=== PATIENT | male | born 1940 | race Caucasian/White ===

== ENCOUNTER → 2016-09-07 | Outpatient (REF) | payer MEDICARE ==
[~2016-09-07] MED LIST: BIMA01SOL OU; CALC600T10 PO; CIPR500T89 PO; FISH1000 PO; FLAG500T PO; FLOM5CAP PO; PROT1TAB2 PO; RAMI10CA PO; RANI300T PO; SIMV40TA2 PO; SUCR1TA PO; TIMO5OPG OU; VITA10002 PO; VITA100066 PO; VITMTA PO
[2016-09-07 11:57] LABS: BASO % 0.7 % (0.0-1.0); EOS # 0.2 K/mm3 (0.0-0.50); EOS % 3.9 % (0.0-3.0); LARGE UNSTAINED CELL # 0.1 K/mm3 (0.0-0.4); LARGE UNSTAINED CELL % 2.1 % (0.0-4.0); LYMPH # 1.6 K/mm3 (1.5-4.5); LYMPH % 22.9 % (24.0-44.0); MEAN CORPUSCULAR HEMOGLOBIN 28.4 pg (27.0-33.0); MEAN CORPUSCULAR HGB CONC 32.9 g/dl (32.0-36.5); MEAN CORPUSCULAR VOLUME 86.4 fl (80.0-96.0); MONO # 0.5 K/mm3 (0.0-0.8); MONO % 7.3 % (0.0-5.0); NEUTROPHILS % 63.3 % (36.0-66.0); PLATELET COUNT, AUTOMATED 176 k/mm3 (150-450); RED CELL DISTRIBUTION WIDTH 14.9 % (11.5-14.5); WHITE BLOOD COUNT 6.2 K/mm3 (4.0-10.0)
[2016-09-07 12:06] LABS: ALBUMIN 3.9 GM/DL (3.2-5.2); ALKALINE PHOSPHATASE 128 U/L (45-117); ALT/SGPT 30 U/L (12-78); ANION GAP 8 MEQ/L (8-16); AST/SGOT 17 U/L (15-37); BILIRUBIN,TOTAL 0.4 MG/DL (0.2-1.0); BLOOD UREA NITROGEN 20 MG/DL (7-18); CALCIUM LEVEL 8.6 MG/DL (8.8-10.2); CARBON DIOXIDE LEVEL 26 MEQ/L (21-32); CHLORIDE LEVEL 106 MEQ/L (98-107); CHOLESTEROL LEVEL 189 MG/DL (<200); CREATININE FOR GFR 1.07 MG/DL (0.70-1.30); FERRITIN 11 NG/ML (26-388); FREE T4 1.01 NG/DL (0.76-1.46); GLOMERULAR FILTRATION RATE > 60.0 (>42); GLUCOSE, FASTING 96 MG/DL (83-110); PERCENT SATURATION 26.9 % (19.7-37.4); POTASSIUM SERUM 4.5 MEQ/L (3.5-5.1); SODIUM LEVEL 140 MEQ/L (136-145); TOTAL IRON BINDING CAPACITY 401 UG/DL (250-450); TOTAL PROTEIN 6.9 GM/DL (6.4-8.2); TRIGLYCERIDES LEVEL 239 MG/DL (<150)
[2016-09-08 14:20] LABS: PSA TOTAL 3.4 ng/mL (0.0-4.0)
== END ==
LOC: M SFHCPLAZ 09:06
PROVIDERS: ATTEND Family Medicine
DX: R73.01 Impaired fasting glucose (principal); E78.5 Hyperlipidemia, unspecified; N40.1 Benign prostatic hyperplasia with lower urinary tract symptoms; E66.9 Obesity, unspecified

== ENCOUNTER → 2017-02-04 | Outpatient (REF) | payer MEDICARE ==
[~2017-02-04] MED LIST changes: -CALC600T10 PO; +CALC600T31 PO; +CIPR-249 PO; -CIPR500T89 PO
[2017-02-04 16:52] LABS: PERCENT SATURATION 16.2 % (19.7-50.0)
[2017-02-04 17:04] LABS: BASO % 0.4 % (0.0-1.0); EOS # 0.2 K/mm3 (0.0-0.50); EOS % 3.1 % (0.0-3.0); LARGE UNSTAINED CELL # 0.2 K/mm3 (0.0-0.4); LARGE UNSTAINED CELL % 2.2 % (0.0-4.0); LYMPH # 1.5 K/mm3 (1.5-4.5); MEAN CORPUSCULAR HEMOGLOBIN 31.3 pg (27.0-33.0); MEAN CORPUSCULAR HGB CONC 34.5 g/dl (32.0-36.5); MEAN CORPUSCULAR VOLUME 90.8 fl (80.0-96.0); MONO # 0.5 K/mm3 (0.0-0.8); MONO % 6.7 % (0.0-5.0); NEUTROPHILS # 5.3 K/mm3 (1.8-7.7); NEUTROPHILS % 68.6 % (36.0-66.0); PLATELET COUNT, AUTOMATED 278 k/mm3 (150-450); RED CELL DISTRIBUTION WIDTH 12.9 % (11.5-14.5); WHITE BLOOD COUNT 7.8 K/mm3 (4.0-10.0)
== END ==
LOC: M SFHCPLAZ 12:29
PROVIDERS: ATTEND Family Medicine
DX: D50.9 Iron deficiency anemia, unspecified (principal); E78.5 Hyperlipidemia, unspecified; R73.01 Impaired fasting glucose

== ENCOUNTER → 2017-06-10 | Outpatient (REF) | payer MEDICARE ==
[2017-06-10 13:17] LABS: BASO # 0.1 10^3/uL (0.0-0.2); BASO % 0.5 % (0.0-1.0); EOS # 0.2 10^3/uL (0.0-0.50); EOS % 1.3 % (0.0-3.0); HEMATOCRIT 43.4 % (42.0-52.0); HEMOGLOBIN 14.4 g/dl (14.0-18.0); IMMATURE GRANULOCYTE # 0.1 10^3/uL (0-0); IMMATURE GRANULOCYTE % 0.9 % (0-0); LYMPH # 1.3 10^3/uL (1.5-4.5); LYMPH % 10.4 % (24.0-44.0); MEAN CORPUSCULAR HEMOGLOBIN 30.4 pg (27.0-33.0); MEAN CORPUSCULAR HGB CONC 33.2 g/dl (32.0-36.5); MEAN CORPUSCULAR VOLUME 91.6 fl (80.0-96.0); MONO # 0.8 10^3/uL (0.0-0.8); MONO % 6.4 % (0.0-5.0); NEUTROPHILS # 9.9 10^3/uL (1.8-7.7); NEUTROPHILS % 80.5 % (36.0-66.0); PLATELET COUNT, AUTOMATED 331 10^3/uL (150-450); RED BLOOD COUNT 4.74 10^6/uL (4.30-6.10); RED CELL DISTRIBUTION WIDTH 13.2 % (11.5-14.5); WHITE BLOOD COUNT 12.3 10^3/uL (4.0-10.0)
[2017-06-10 13:35] LABS: ESTIMATED AVERAGE GLUCOSE 123 MG/DL (60-110); HEMOGLOBIN A1c 5.9 %
[2017-06-10 14:12] LABS: TOTAL 25(OH) VITAMIN D 26.9 NG/ML (30.0-100.0)
[2017-06-10 14:13] LABS: ALBUMIN 3.8 GM/DL (3.2-5.2); ALBUMIN/GLOBULIN RATIO 1.06 (1.00-1.93); ALKALINE PHOSPHATASE 129 U/L (45-117); ALT/SGPT 26 U/L (12-78); ANION GAP 7 MEQ/L (8-16); AST/SGOT 15 U/L (7-37); BILIRUBIN,TOTAL 0.4 MG/DL (0.2-1.0); BLOOD UREA NITROGEN 22 MG/DL (7-18); C REACTIVE PROTEIN QUANTITATIV 2.14 MG/DL (0.00-0.30); CALCIUM LEVEL 9.5 MG/DL (8.8-10.2); CARBON DIOXIDE LEVEL 27 MEQ/L (21-32); CHLORIDE LEVEL 103 MEQ/L (98-107); CPK CREATINE PHOSPHOKINASE 52 U/L (39-308); GLOMERULAR FILTRATION RATE > 60.0 (>42); GLUCOSE, FASTING 111 MG/DL (70-100); MAGNESIUM LEVEL 2.3 MG/DL (1.8-2.4); POTASSIUM SERUM 4.8 MEQ/L (3.5-5.1); PTH INTACT 29.1 PG/ML (14.0-72.0); SODIUM LEVEL 137 MEQ/L (136-145); TOTAL PROTEIN 7.4 GM/DL (6.4-8.2)
== END ==
LOC: M SFHCPLAZ 11:26
DX: N40.1 Benign prostatic hyperplasia with lower urinary tract symptoms (principal); R73.01 Impaired fasting glucose; D50.9 Iron deficiency anemia, unspecified; I10 Essential (primary) hypertension; E55.9 Vitamin D deficiency, unspecified; E78.5 Hyperlipidemia, unspecified
CPT/HCPCS: 82550

== ENCOUNTER → 2017-06-11 | Outpatient (CLI) | payer MEDICARE ==
[~2017-06-11] MED LIST changes: -BIMA01SOL OU; -CALC600T31 PO; -CIPR-249 PO; -FISH1000 PO; -FLAG500T PO; -FLOM5CAP PO; +GASTROGRAFIN SOLUTION 30ML (Q9963) As Ordered; +ISOVUE-370 76% 100ML VIAL (Q9967) As Ordered; -PROT1TAB2 PO; -RAMI10CA PO; -RANI300T PO; -SIMV40TA2 PO; -SUCR1TA PO; -TIMO5OPG OU; -VITA10002 PO; -VITA100066 PO; -VITMTA PO
== END ==
LOC: M RAD 08:53
DX: K57.30 Diverticulosis of large intestine without perforation or abscess without bleeding (principal); K76.89 Other specified diseases of liver; N28.1 Cyst of kidney, acquired; M51.36 Other intervertebral disc degeneration, lumbar region; M25.78 Osteophyte, vertebrae; R10.12 Left upper quadrant pain
CPT/HCPCS: Q9963

== ENCOUNTER → 2017-06-14 | Outpatient (REF) | payer MEDICARE ==
[2017-06-14 12:00] LABS: BASO # 0.1 10^3/uL (0.0-0.2); BASO % 0.6 % (0.0-1.0); EOS # 0.3 10^3/uL (0.0-0.50); EOS % 3.7 % (0.0-3.0); HEMOGLOBIN 13.2 g/dl (14.0-18.0); IMMATURE GRANULOCYTE # 0.1 10^3/uL (0-0); IMMATURE GRANULOCYTE % 0.8 % (0-0); LYMPH # 1.5 10^3/uL (1.5-4.5); LYMPH % 19.3 % (24.0-44.0); MEAN CORPUSCULAR HEMOGLOBIN 31.1 pg (27.0-33.0); MEAN CORPUSCULAR HGB CONC 33.8 g/dl (32.0-36.5); MONO # 0.8 10^3/uL (0.0-0.8); MONO % 10.4 % (0.0-5.0); NEUTROPHILS # 5.1 10^3/uL (1.8-7.7); NEUTROPHILS % 65.2 % (36.0-66.0); PLATELET COUNT, AUTOMATED 243 10^3/uL (150-450); RED BLOOD COUNT 4.24 10^6/uL (4.30-6.10); RED CELL DISTRIBUTION WIDTH 13.3 % (11.5-14.5); WHITE BLOOD COUNT 7.8 10^3/uL (4.0-10.0)
[2017-06-14 12:21] LABS: ALBUMIN 3.5 GM/DL (3.2-5.2); ALBUMIN/GLOBULIN RATIO 1.17 (1.00-1.93); ALKALINE PHOSPHATASE 103 U/L (45-117); ALT/SGPT 32 U/L (12-78); ANION GAP 8 MEQ/L (8-16); AST/SGOT 32 U/L (7-37); BILIRUBIN,TOTAL 0.2 MG/DL (0.2-1.0); BLOOD UREA NITROGEN 16 MG/DL (7-18); C REACTIVE PROTEIN QUANTITATIV 0.67 MG/DL (0.00-0.30); CALCIUM LEVEL 8.4 MG/DL (8.8-10.2); CARBON DIOXIDE LEVEL 25 MEQ/L (21-32); CHLORIDE LEVEL 106 MEQ/L (98-107); CREATININE FOR GFR 0.91 MG/DL (0.70-1.30); GLOMERULAR FILTRATION RATE > 60.0 (>42); GLUCOSE, FASTING 100 MG/DL (70-100); POTASSIUM SERUM 4.6 MEQ/L (3.5-5.1); SODIUM LEVEL 139 MEQ/L (136-145); TOTAL PROTEIN 6.5 GM/DL (6.4-8.2)
[2017-06-14 12:29] LABS: ERYTHROCYTE SEDIMENTATION RATE 29 mm/hr (0-20)
== END ==
LOC: M SFHCPLAZ 10:04
DX: K57.92 Diverticulitis of intestine, part unspecified, without perforation or abscess without bleeding (principal)
CPT/HCPCS: 80053

== ENCOUNTER → 2017-07-14 | Outpatient (CLI) | payer MEDICARE | LOC: M SMT 11:10 | DX: J06.9 Acute upper respiratory infection, unspecified (principal) | CPT/HCPCS: 71046 ==

== ENCOUNTER → 2017-10-01 | Outpatient (REF) | payer MEDICARE ==
[2017-10-01 15:58] LABS: RETIC HEMOGLOBIN EQUIVALENT 37.6 pg (24-36); RETICULOCYTE # 85.4 10^9/L (17-77); RETICULOCYTE % 1.8 % (0.5-1.5)
[2017-10-01 16:15] LABS: ESTIMATED AVERAGE GLUCOSE 111 MG/DL (60-110); HEMOGLOBIN A1c 5.5 %
[2017-10-01 16:16] LABS: ALBUMIN 4.1 GM/DL (3.2-5.2); ALBUMIN/GLOBULIN RATIO 1.46 (1.00-1.93); ALKALINE PHOSPHATASE 107 U/L (45-117); ALT/SGPT 23 U/L (12-78); ANION GAP 7 MEQ/L (8-16); AST/SGOT 18 U/L (7-37); BILIRUBIN,TOTAL 0.4 MG/DL (0.2-1.0); BLOOD UREA NITROGEN 19 MG/DL (7-18); CALCIUM LEVEL 8.7 MG/DL (8.8-10.2); CARBON DIOXIDE LEVEL 26 MEQ/L (21-32); CHLORIDE LEVEL 108 MEQ/L (98-107); CREATININE FOR GFR 0.91 MG/DL (0.70-1.30); GLOMERULAR FILTRATION RATE > 60.0 (>42); GLUCOSE, FASTING 87 MG/DL (70-100); MAGNESIUM LEVEL 2.2 MG/DL (1.8-2.4); POTASSIUM SERUM 4.5 MEQ/L (3.5-5.1); PROSTATIC SPECIFIC AG MONITOR 5.18 NG/ML (< 4.0); SODIUM LEVEL 141 MEQ/L (136-145); TOTAL PROTEIN 6.9 GM/DL (6.4-8.2); VITAMIN B12 LEVEL 677 PG/ML (247-911)
[2017-10-05 14:11] LABS: H PYLORI SERUM QUANT IgG ABY 0.82 (0.00-0.79)
[2017-10-06 14:15] LABS: INSULIN LEVEL 8.3 uIU/mL (2.6-24.9)
== END ==
LOC: M SFHCPLAZ 13:38
DX: R73.01 Impaired fasting glucose (principal); I10 Essential (primary) hypertension; E53.8 Deficiency of other specified B group vitamins; N40.1 Benign prostatic hyperplasia with lower urinary tract symptoms
CPT/HCPCS: 83525

== ENCOUNTER 2017-11-26 18:52 | Inpatient (IN) | payer MEDICARE ==
[2017-11-26] MEDS ORDERED: ISOVUE-370 76% 100ML VIAL (Q9967) As Ordered (20:26)
[2017-11-26 21:08] LABS: C REACTIVE PROTEIN QUANTITATIV 6.59 MG/DL (0.00-0.30)
[2017-11-26 21:31] LABS: CPK CREATINE PHOSPHOKINASE 29 U/L (39-308)
[2017-11-26] MEDS: CEFEPIME HCL 1 GM in D5W MINI-BAG PLUS 50 ML IV (21:40)
[2017-11-26 21:47] LABS: CK-MB VALUE MASS < 1.0 NG/ML (<3.6); MB/CK RELATIVE INDEX 3.44 (< OR =4); NT-PRO BNP 426 PG/ML (<450); TROPONIN I < 0.02 NG/ML (< 0.10)
[2017-11-26] MEDS: VANCOMYCIN HCL 1,000 MG, VIAL MATE ADAPTER 1 EACH in D5W 250 ML IV (22:22)
[2017-11-26] MEDS: NS 500 ML IV (23:00)
[2017-11-26 23:24] LABS: TYPE AND SCREEN 1
[2017-11-27] MEDS: FAMOTIDINE 20 MG TAB PO ×2 (01:31→20:21)
[2017-11-27] MEDS: SIMVASTATIN 40 MG TAB PO ×2 (01:31→20:21)
[2017-11-27] MEDS: RAMIPRIL 5 MG CAP PO ×3 (01:31→20:21)
[2017-11-27] MEDS: TAMSULOSIN 0.4 MG CAP PO ×2 (01:31→20:22)
[2017-11-27] MEDS: VANCOMYCIN HCL 1,000 MG, VIAL MATE ADAPTER 1 EACH in D5W 250 ML IV ×2 (04:37→16:05)
[2017-11-27 04:48] LABS: APPEARANCE, URINE CLEAR (CLEAR); BACTERIA, URINE AUTO NEGATIVE (NEGATIVE); BILIRUBIN, URINE AUTO NEGATIVE (NEGATIVE); BLOOD, URINE BLOOD NEGATIVE (NEGATIVE); COLOR, URINE YELLOW (YELLOW); GLUCOSE, URINE (UA) AUTO NEGATIVE (NEGATIVE); KETONE, URINE AUTO NEGATIVE (NEGATIVE); LEUKOCYTE ESTERASE, URINE AUTO NEGATIVE (NEGATIVE); MUCUS, URINE SMALL (NEGATIVE); NITRITE, URINE AUTO NEGATIVE (NEGATIVE); PROTEIN, URINE AUTO NEGATIVE (NEGATIVE); RBC, URINE AUTO 2 /HPF (0-3); SQUAMOUS EPITHELIAL CELL UR AU 0 /HPF (0-6); UROBILINOGEN, URINE AUTO 0.2 mg/dL (0.0-2.0); WBC, URINE AUTO 2 /HPF (0-3)
[2017-11-27 04:49] LABS: SPECIFIC GRAVITY URINE AUTO >1.060 (1.002-1.035)
[2017-11-27 05:44] LABS: HEMATOCRIT 27.1 % (42.0-52.0); MEAN CORPUSCULAR HEMOGLOBIN 29.8 pg (27.0-33.0); MEAN CORPUSCULAR HGB CONC 32.1 g/dl (32.0-36.5); MEAN CORPUSCULAR VOLUME 92.8 fl (80.0-96.0); PLATELET COUNT, AUTOMATED 293 10^3/uL (150-450); RED BLOOD COUNT 2.92 10^6/uL (4.30-6.10); RED CELL DISTRIBUTION WIDTH 14.1 % (11.5-14.5); WHITE BLOOD COUNT 8.8 10^3/uL (4.0-10.0)
[2017-11-27 05:45] LABS: HEMOGLOBIN 8.7 g/dl (13.5-17.5)
[2017-11-27 05:54] LABS: ANION GAP 7 MEQ/L (8-16); BLOOD UREA NITROGEN 22 MG/DL (7-18); CALCIUM LEVEL 7.6 MG/DL (8.8-10.2); CARBON DIOXIDE LEVEL 26 MEQ/L (21-32); CHLORIDE LEVEL 110 MEQ/L (98-107); CREATININE FOR GFR 0.64 MG/DL (0.70-1.30); GLOMERULAR FILTRATION RATE > 60.0 (>42); GLUCOSE, FASTING 127 MG/DL (70-100); POTASSIUM SERUM 3.7 MEQ/L (3.5-5.1); SODIUM LEVEL 143 MEQ/L (136-145)
[2017-11-27] MEDS: ENOXAPARIN 40 MG/0.4 ML SYRINGE (J1650) SC (08:28)
[2017-11-27] MEDS: CYANOCOBALAMIN 500 MCG TAB PO (08:29)
[2017-11-27] MEDS: TIMOLOL XE GFS 0.5% OPHTH 5 ML OU (08:29)
[2017-11-27] MEDS: VITAMIN D 1,000 INTERNATIONAL UNITS TABLET PO (08:29)
[2017-11-27] MEDS: MULTIVITAMINS/MINERALS THERAP 1 TAB PO (08:32)
[2017-11-27] MEDS: CEFEPIME HCL 1 GM in D5W MINI-BAG PLUS 50 ML IV ×2 (08:32→20:22)
[2017-11-27] MEDS: PANTOPRAZOLE 40MG TAB (PROTONIX) PO (09:00)
[2017-11-27] MEDS ORDERED: CEFEPIME HCL 1 GM in D5W MINI-BAG PLUS 50 ML IV (09:00)
[2017-11-27] MEDS: MOM 30ML SUSPENSION UDC PO (09:00)
[2017-11-27 10:27] LABS: TYPE AND SCREEN 1
[2017-11-27] MEDS ORDERED: BISACODYL 10 MG SUPP PR (12:00)
[2017-11-27] MEDS ORDERED: LEVALBUTEROL 1.25 MG/0.5 ML CONCENTRATE NEB NEB (12:00)
[2017-11-27] MEDS: KETOROLAC 30 MG/ML VIAL (J1885) IV ×3 (12:00→23:39)
[2017-11-27] MEDS ORDERED: ONDANSETRON 4MG/2ML VIAL (J2405) IV (12:00)
[2017-11-27] MEDS ORDERED: PERCOCET 5MG/325MG TAB PO ×2 (12:00)
[2017-11-27] MEDS ORDERED: MIDAZOLAM INJ 2 MG/2 ML VIAL (J2250) As Ordered ×3 (12:03)
[2017-11-27] MEDS ORDERED: FLUMAZENIL 0.5 MG/5 ML VIAL As Ordered (12:04)
[2017-11-27] MEDS ORDERED: LIDOCAINE 1% MDV 20ML VIAL As Ordered (12:04)
[2017-11-27] MEDS ORDERED: KCL 20MEQ IN D5/NS 1000ML 1,000 ML IV (12:15)
[2017-11-27] MEDS: MIDAZOLAM INJ 2 MG/2 ML VIAL (J2250) IV ×2 (12:25→12:27)
[2017-11-27] MEDS: LIDOCAINE 1% MDV 20ML VIAL SC (12:28)
[2017-11-27 12:47] LABS: LDH LACTATE DEHYDROGENASE 165 U/L (87-241)
[2017-11-27 13:33] LABS: PH BODY FLUID 7.676 UNITS (NOT ESTABLISHED); SOURCE, BODY FLUID pH PLEURAL
[2017-11-27 13:36] LABS: BF MONONUCLEAR CELL % 84.7 % (0-0); BF POLYMORPHONUCLEAR CELL % 15.3 % (0-0); RBC BODY FLUID 2 10^3/uL (<2); SOURCE, BODY FLUID PLEURAL; WBC BODY FLUID 758 /uL (0-10)
[2017-11-27 13:37] LABS: APPEARANCE, BODY FLUID HAZY (CLEAR); BF DIFF IF INDICATED? YES (NO); PLEURAL FL COLOR YELLOW (COLORLESS)
[2017-11-27 13:53] LABS: AMYLASE, BODY FLUID 33 U/L (NOT ESTABLISHED); CHOLESTEROL, BODY FLUID 50 MG/DL (NOT ESTABLISHED); LDH, BODY FLUID 147 U/L (NOT ESTABLISHED); SOURCE, BODY FLUID ALBUMIN PLEURAL; SOURCE, BODY FLUID AMYLASE PLEURAL; SOURCE, BODY FLUID CHOL PLEURAL; SOURCE, BODY FLUID GLUCOSE PLEURAL; SOURCE, BODY FLUID LDH PLEURAL; SOURCE, BODY FLUID TOT PROTEIN PLEURAL; SOURCE, BODY FLUID TRIG PLEURAL; TOTAL PROTEIN, BODY FLUID 4.2 G/DL (NOT ESTABLISHED); TRIGLYCERIDE, BODY FLUID 25 MG/DL (NOT ESTABLISHED)
[2017-11-27] MEDS: LEVALBUTEROL 1.25 MG/0.5 ML CONCENTRATE NEB NEB ×2 (14:07→19:54)
[2017-11-27] MEDS: NORCO, ANEXSIA 5/325MG TABLET (HYDROcodone/ACETAMINOPHEN) PO (16:05)
[2017-11-27] MEDS ORDERED: SLF 3 ML SYR IV (17:30)
[2017-11-27] MEDS: DOCUSATE SODIUM 100 MG CAP PO (20:22)
[2017-11-27] MEDS: SLF 3 ML SYR IV (21:05)
[2017-11-28] MEDS: LEVALBUTEROL 1.25 MG/0.5 ML CONCENTRATE NEB NEB ×4 (01:22→19:29)
[2017-11-28 05:37] LABS: HEMATOCRIT 28.1 % (42.0-52.0); MEAN CORPUSCULAR HEMOGLOBIN 29.1 pg (27.0-33.0); MEAN CORPUSCULAR VOLUME 90.9 fl (80.0-96.0); PLATELET COUNT, AUTOMATED 274 10^3/uL (150-450); RED BLOOD COUNT 3.09 10^6/uL (4.30-6.10); WHITE BLOOD COUNT 8.4 10^3/uL (4.0-10.0)
[2017-11-28] MEDS: SLF 3 ML SYR IV ×3 (05:41→21:30)
[2017-11-28] MEDS: KETOROLAC 30 MG/ML VIAL (J1885) IV ×4 (05:41→23:44)
[2017-11-28] MEDS: VANCOMYCIN HCL 1,000 MG, VIAL MATE ADAPTER 1 EACH in D5W 250 ML IV ×2 (05:41→17:25)
[2017-11-28 05:46] LABS: ANION GAP 7 MEQ/L (8-16); BLOOD UREA NITROGEN 20 MG/DL (7-18); CALCIUM LEVEL 7.8 MG/DL (8.8-10.2); CARBON DIOXIDE LEVEL 28 MEQ/L (21-32); CHLORIDE LEVEL 108 MEQ/L (98-107); CREATININE FOR GFR 0.77 MG/DL (0.70-1.30); GLOMERULAR FILTRATION RATE > 60.0 (>42); GLUCOSE, FASTING 93 MG/DL (70-100); POTASSIUM SERUM 3.9 MEQ/L (3.5-5.1); SODIUM LEVEL 143 MEQ/L (136-145)
[2017-11-28] MEDS: CYANOCOBALAMIN 500 MCG TAB PO (08:10)
[2017-11-28] MEDS: CEFEPIME HCL 1 GM in D5W MINI-BAG PLUS 50 ML IV ×2 (08:11→21:29)
[2017-11-28] MEDS: TIMOLOL XE GFS 0.5% OPHTH 5 ML OU (08:11)
[2017-11-28] MEDS: ENOXAPARIN 40 MG/0.4 ML SYRINGE (J1650) SC (08:11)
[2017-11-28] MEDS: MOM 30ML SUSPENSION UDC PO (08:12)
[2017-11-28] MEDS: DOCUSATE SODIUM 100 MG CAP PO ×2 (08:12→21:29)
[2017-11-28] MEDS: VITAMIN D 1,000 INTERNATIONAL UNITS TABLET PO (08:12)
[2017-11-28] MEDS: PANTOPRAZOLE 40MG TAB (PROTONIX) PO (08:12)
[2017-11-28] MEDS: RAMIPRIL 5 MG CAP PO ×2 (08:13→21:29)
[2017-11-28] MEDS: MULTIVITAMINS/MINERALS THERAP 1 TAB PO (08:13)
[2017-11-28 16:50] LABS: VANCOMYCIN LEVEL TROUGH 14.3 UG/ML (10.0-20.0)
[2017-11-28] MEDS: FAMOTIDINE 20 MG TAB PO (21:29)
[2017-11-28] MEDS: SIMVASTATIN 40 MG TAB PO (21:29)
[2017-11-28] MEDS: TAMSULOSIN 0.4 MG CAP PO (21:29)
[2017-11-29] MEDS: LEVALBUTEROL 1.25 MG/0.5 ML CONCENTRATE NEB NEB ×4 (02:37→21:22)
[2017-11-29] MEDS: KETOROLAC 30 MG/ML VIAL (J1885) IV ×3 (06:00→18:00)
[2017-11-29] MEDS: VANCOMYCIN HCL 1,000 MG, VIAL MATE ADAPTER 1 EACH in D5W 250 ML IV ×2 (06:01→16:57)
[2017-11-29] MEDS: SLF 3 ML SYR IV ×3 (06:01→21:51)
[2017-11-29 06:14] LABS: HEMATOCRIT 27.2 % (42.0-52.0); HEMOGLOBIN 8.7 g/dl (13.5-17.5); MEAN CORPUSCULAR HEMOGLOBIN 28.9 pg (27.0-33.0); MEAN CORPUSCULAR VOLUME 90.4 fl (80.0-96.0); PLATELET COUNT, AUTOMATED 272 10^3/uL (150-450); RED BLOOD COUNT 3.01 10^6/uL (4.30-6.10); WHITE BLOOD COUNT 8.9 10^3/uL (4.0-10.0)
[2017-11-29 06:36] LABS: ANION GAP 6 MEQ/L (8-16); BLOOD UREA NITROGEN 24 MG/DL (7-18); CALCIUM LEVEL 7.4 MG/DL (8.8-10.2); CARBON DIOXIDE LEVEL 27 MEQ/L (21-32); CHLORIDE LEVEL 109 MEQ/L (98-107); CREATININE FOR GFR 0.85 MG/DL (0.70-1.30); GLOMERULAR FILTRATION RATE > 60.0 (>42); GLUCOSE, FASTING 125 MG/DL (70-100); POTASSIUM SERUM 3.6 MEQ/L (3.5-5.1); SODIUM LEVEL 142 MEQ/L (136-145)
[2017-11-29] MEDS ORDERED: ISOVUE-370 76% 100ML VIAL (Q9967) As Ordered (07:50)
[2017-11-29] MEDS: ENOXAPARIN 40 MG/0.4 ML SYRINGE (J1650) SC (09:00)
[2017-11-29] MEDS: MOM 30ML SUSPENSION UDC PO (09:57)
[2017-11-29] MEDS: CEFEPIME HCL 1 GM in D5W MINI-BAG PLUS 50 ML IV ×2 (09:57→21:50)
[2017-11-29] MEDS: MULTIVITAMINS/MINERALS THERAP 1 TAB PO (09:58)
[2017-11-29] MEDS: CYANOCOBALAMIN 500 MCG TAB PO (09:58)
[2017-11-29] MEDS: VITAMIN D 1,000 INTERNATIONAL UNITS TABLET PO (09:58)
[2017-11-29] MEDS: DOCUSATE SODIUM 100 MG CAP PO ×2 (09:58→20:53)
[2017-11-29] MEDS: PANTOPRAZOLE 40MG TAB (PROTONIX) PO (09:58)
[2017-11-29] MEDS: RAMIPRIL 5 MG CAP PO ×2 (09:59→20:53)
[2017-11-29] MEDS: TIMOLOL XE GFS 0.5% OPHTH 5 ML OU (09:59)
[2017-11-29] MEDS ORDERED: LIDOCAINE 1% MDV 20ML VIAL As Ordered (13:11)
[2017-11-29] MEDS: FUROSEMIDE 40 MG/4 ML VIAL (J1940) IV (14:55)
[2017-11-29] MEDS: ACETAMINOPHEN TAB 650MG DOSE (2X325MG) PO (16:56)
[2017-11-29] MEDS: TAMSULOSIN 0.4 MG CAP PO (20:53)
[2017-11-29] MEDS: FAMOTIDINE 20 MG TAB PO (20:53)
[2017-11-29] MEDS: SIMVASTATIN 40 MG TAB PO (20:53)
[2017-11-30] MEDS: LEVALBUTEROL 1.25 MG/0.5 ML CONCENTRATE NEB NEB ×4 (01:42→19:09)
[2017-11-30] MEDS: VANCOMYCIN HCL 1,000 MG, VIAL MATE ADAPTER 1 EACH in D5W 250 ML IV ×2 (04:25→18:01)
[2017-11-30 05:23] LABS: HEMATOCRIT 28.6 % (42.0-52.0); HEMOGLOBIN 9.2 g/dl (13.5-17.5); MEAN CORPUSCULAR HEMOGLOBIN 28.7 pg (27.0-33.0); MEAN CORPUSCULAR HGB CONC 32.2 g/dl (32.0-36.5); MEAN CORPUSCULAR VOLUME 89.1 fl (80.0-96.0); PLATELET COUNT, AUTOMATED 299 10^3/uL (150-450); RED BLOOD COUNT 3.21 10^6/uL (4.30-6.10); RED CELL DISTRIBUTION WIDTH 14.1 % (11.5-14.5); WHITE BLOOD COUNT 9.3 10^3/uL (4.0-10.0)
[2017-11-30 05:45] LABS: ANION GAP 7 MEQ/L (8-16); BLOOD UREA NITROGEN 17 MG/DL (7-18); CALCIUM LEVEL 7.9 MG/DL (8.8-10.2); CARBON DIOXIDE LEVEL 28 MEQ/L (21-32); CHLORIDE LEVEL 106 MEQ/L (98-107); GLOMERULAR FILTRATION RATE > 60.0 (>42); GLUCOSE, FASTING 115 MG/DL (70-100); POTASSIUM SERUM 3.6 MEQ/L (3.5-5.1); SODIUM LEVEL 141 MEQ/L (136-145)
[2017-11-30] MEDS: KETOROLAC 30 MG/ML VIAL (J1885) IV ×5 (06:00→23:52)
[2017-11-30] MEDS: SLF 3 ML SYR IV ×3 (06:00→20:55)
[2017-11-30] MEDS: TIMOLOL XE GFS 0.5% OPHTH 5 ML OU (09:49)
[2017-11-30] MEDS: MOM 30ML SUSPENSION UDC PO (09:49)
[2017-11-30] MEDS: FUROSEMIDE 40 MG/4 ML VIAL (J1940) IV (09:49)
[2017-11-30] MEDS: CYANOCOBALAMIN 500 MCG TAB PO (09:50)
[2017-11-30] MEDS: MULTIVITAMINS/MINERALS THERAP 1 TAB PO (09:50)
[2017-11-30] MEDS: RAMIPRIL 5 MG CAP PO ×2 (09:50→20:52)
[2017-11-30] MEDS: PANTOPRAZOLE 40MG TAB (PROTONIX) PO (09:50)
[2017-11-30] MEDS: ENOXAPARIN 40 MG/0.4 ML SYRINGE (J1650) SC (09:51)
[2017-11-30] MEDS: DOCUSATE SODIUM 100 MG CAP PO ×2 (09:51→20:52)
[2017-11-30] MEDS: CEFEPIME HCL 1 GM in D5W MINI-BAG PLUS 50 ML IV ×2 (10:30→20:52)
[2017-11-30] MEDS: VITAMIN D 1,000 INTERNATIONAL UNITS TABLET PO (10:30)
[2017-11-30 16:20] LABS: VANCOMYCIN LEVEL TROUGH 15.7 UG/ML (10.0-20.0)
[2017-11-30] MEDS: FAMOTIDINE 20 MG TAB PO (20:52)
[2017-11-30] MEDS: SIMVASTATIN 40 MG TAB PO (20:52)
[2017-11-30] MEDS: TAMSULOSIN 0.4 MG CAP PO (20:54)
[2017-12-01] MEDS: LEVALBUTEROL 1.25 MG/0.5 ML CONCENTRATE NEB NEB ×4 (02:00→19:29)
[2017-12-01] MEDS: VANCOMYCIN HCL 1,000 MG, VIAL MATE ADAPTER 1 EACH in D5W 250 ML IV ×2 (04:26→17:16)
[2017-12-01 05:24] LABS: HEMATOCRIT 32.1 % (42.0-52.0); HEMOGLOBIN 10.1 g/dl (13.5-17.5); MEAN CORPUSCULAR HEMOGLOBIN 29.4 pg (27.0-33.0); MEAN CORPUSCULAR HGB CONC 31.5 g/dl (32.0-36.5); MEAN CORPUSCULAR VOLUME 93.6 fl (80.0-96.0); PLATELET COUNT, AUTOMATED 236 10^3/uL (150-450); RED BLOOD COUNT 3.43 10^6/uL (4.30-6.10); RED CELL DISTRIBUTION WIDTH 14.1 % (11.5-14.5); WHITE BLOOD COUNT 9.2 10^3/uL (4.0-10.0)
[2017-12-01 05:40] LABS: ANION GAP 8 MEQ/L (8-16); BLOOD UREA NITROGEN 19 MG/DL (7-18); CALCIUM LEVEL 7.9 MG/DL (8.8-10.2); CARBON DIOXIDE LEVEL 26 MEQ/L (21-32); CHLORIDE LEVEL 106 MEQ/L (98-107); CREATININE FOR GFR 0.67 MG/DL (0.70-1.30); GLOMERULAR FILTRATION RATE > 60.0 (>42); GLUCOSE, FASTING 132 MG/DL (70-100); SODIUM LEVEL 140 MEQ/L (136-145)
[2017-12-01] MEDS: SLF 3 ML SYR IV ×2 (06:00→17:16)
[2017-12-01] MEDS: KETOROLAC 30 MG/ML VIAL (J1885) IV ×3 (06:00→17:16)
[2017-12-01] MEDS: CEFEPIME HCL 1 GM in D5W MINI-BAG PLUS 50 ML IV (08:46)
[2017-12-01] MEDS: MOM 30ML SUSPENSION UDC PO (08:46)
[2017-12-01] MEDS: ENOXAPARIN 40 MG/0.4 ML SYRINGE (J1650) SC (08:46)
[2017-12-01] MEDS: MULTIVITAMINS/MINERALS THERAP 1 TAB PO (08:47)
[2017-12-01] MEDS: DOCUSATE SODIUM 100 MG CAP PO ×2 (08:47→19:59)
[2017-12-01] MEDS: PANTOPRAZOLE 40MG TAB (PROTONIX) PO (08:47)
[2017-12-01] MEDS: CYANOCOBALAMIN 500 MCG TAB PO (08:47)
[2017-12-01] MEDS: VITAMIN D 1,000 INTERNATIONAL UNITS TABLET PO (08:47)
[2017-12-01] MEDS: RAMIPRIL 5 MG CAP PO ×2 (08:47→20:00)
[2017-12-01] MEDS: TIMOLOL XE GFS 0.5% OPHTH 5 ML OU (08:48)
[2017-12-01] MEDS: SIMVASTATIN 40 MG TAB PO (19:59)
[2017-12-01] MEDS: TAMSULOSIN 0.4 MG CAP PO (19:59)
[2017-12-01] MEDS: FAMOTIDINE 20 MG TAB PO (19:59)
[2017-12-01] MEDS: AUGMENTIN 875 MG TAB PO (21:44)
[2017-12-02] MEDS: LEVALBUTEROL 1.25 MG/0.5 ML CONCENTRATE NEB NEB ×2 (01:12→07:24)
[2017-12-02 05:37] LABS: HEMATOCRIT 29.6 % (42.0-52.0); HEMOGLOBIN 9.5 g/dl (13.5-17.5); MEAN CORPUSCULAR HEMOGLOBIN 28.9 pg (27.0-33.0); MEAN CORPUSCULAR HGB CONC 32.1 g/dl (32.0-36.5); PLATELET COUNT, AUTOMATED 306 10^3/uL (150-450); RED BLOOD COUNT 3.29 10^6/uL (4.30-6.10); RED CELL DISTRIBUTION WIDTH 14.1 % (11.5-14.5)
[2017-12-02 06:00] LABS: ANION GAP 7 MEQ/L (8-16); BLOOD UREA NITROGEN 17 MG/DL (7-18); CALCIUM LEVEL 7.9 MG/DL (8.8-10.2); CARBON DIOXIDE LEVEL 30 MEQ/L (21-32); CHLORIDE LEVEL 106 MEQ/L (98-107); GLOMERULAR FILTRATION RATE > 60.0 (>42); GLUCOSE, FASTING 100 MG/DL (70-100); POTASSIUM SERUM 3.8 MEQ/L (3.5-5.1); SODIUM LEVEL 143 MEQ/L (136-145)
[2017-12-02] MEDS: DOCUSATE SODIUM 100 MG CAP PO (08:18)
[2017-12-02] MEDS: PANTOPRAZOLE 40MG TAB (PROTONIX) PO (08:18)
[2017-12-02] MEDS: MOM 30ML SUSPENSION UDC PO (08:18)
[2017-12-02] MEDS: VITAMIN D 1,000 INTERNATIONAL UNITS TABLET PO (08:18)
[2017-12-02] MEDS: RAMIPRIL 5 MG CAP PO (08:18)
[2017-12-02] MEDS: AUGMENTIN 875 MG TAB PO (08:18)
[2017-12-02] MEDS: CYANOCOBALAMIN 500 MCG TAB PO (08:18)
[2017-12-02] MEDS: MULTIVITAMINS/MINERALS THERAP 1 TAB PO (08:18)
[2017-12-02] MEDS: TIMOLOL XE GFS 0.5% OPHTH 5 ML OU (08:19)
[2017-12-02] MEDS: ENOXAPARIN 40 MG/0.4 ML SYRINGE (J1650) SC (08:19)
[2017-12-04 14:33] LABS: BODY FLUID CULTURE Not Indicated (.); LEGIONELLA ANTIGEN URINE Negative (Negative); ORGANISM ID Not indicated. (.); SPECIMEN SOURCE Urine (.); URINE STREP PNEUMONIAE ANTIGEN Negative (Negative)
== END 2017-12-02 12:20 | disposition home or self-care (01) | DRG 186 ==
LOC: M MSPAV 11-27 00:15 → M PCU 11-27 12:11 → M ED 18:52 → M ED INP 22:42
PROC: 0W9930Z Drainage of Right Pleural Cavity with Drainage Device, Percutaneous Approach (ICD-10-PCS; principal; 2017-11-27)
PROC: 0BBF3ZX Excision of Right Lower Lung Lobe, Percutaneous Approach, Diagnostic (ICD-10-PCS; 2017-11-29)
DX: J90 Pleural effusion, not elsewhere classified (principal); J18.9 Pneumonia, unspecified organism; R09.02 Hypoxemia; D64.9 Anemia, unspecified; K21.9 Gastro-esophageal reflux disease without esophagitis; N40.0 Benign prostatic hyperplasia without lower urinary tract symptoms; K59.00 Constipation, unspecified; I10 Essential (primary) hypertension; H40.9 Unspecified glaucoma; Z79.899 Other long term (current) drug therapy; Z87.891 Personal history of nicotine dependence

== ENCOUNTER → 2017-11-26 | Outpatient (REF) | payer MEDICARE | LOC: M SFHCPLAZ 11-29 12:04 | DX: R21 Rash and other nonspecific skin eruption (principal) | CPT/HCPCS: 87070; 87077; 87186 ==

== ENCOUNTER → 2017-12-29 | Outpatient (CLI) | payer MEDICARE ==
[~2017-12-29] MED LIST changes: -GASTROGRAFIN SOLUTION 30ML (Q9963) As Ordered
== END ==
LOC: M RAD 08:16
DX: R91.8 Other nonspecific abnormal finding of lung field (principal); J90 Pleural effusion, not elsewhere classified
CPT/HCPCS: Q9967

== ENCOUNTER → 2018-01-04 | Outpatient (CLI) | payer MEDICARE ==
[~2018-01-04] MED LIST changes: +E-Z-GAS II EFFERVESCENT PACKET (SODIUM BICARB./CITRIC ACID/SIMETHICONE) As Ordered; +E-Z-HD 98% w/w 340GM SUSP BTL As Ordered; +E-Z-PAQUE 96% w/w SUSP 176GM BTL As Ordered; -ISOVUE-370 76% 100ML VIAL (Q9967) As Ordered
== END ==
LOC: M RAD 09:04
DX: K57.12 Diverticulitis of small intestine without perforation or abscess without bleeding (principal); K44.9 Diaphragmatic hernia without obstruction or gangrene
CPT/HCPCS: 74245

== ENCOUNTER → 2018-02-03 | Outpatient (REF) | payer MEDICARE ==
[2018-02-03 12:42] LABS: BASO % 0.5 % (0.0-1.0); EOS # 0.3 10^3/uL (0.0-0.50); EOS % 3.6 % (0.0-3.0); HEMATOCRIT 37.8 % (42.0-52.0); HEMOGLOBIN 12.2 g/dl (13.5-17.5); IMMATURE GRANULOCYTE % 0.5 % (0-3.0); LYMPH # 1.3 10^3/uL (1.5-4.5); LYMPH % 15.5 % (24.0-44.0); MEAN CORPUSCULAR HEMOGLOBIN 29.2 pg (27.0-33.0); MEAN CORPUSCULAR HGB CONC 32.3 g/dl (32.0-36.5); MEAN CORPUSCULAR VOLUME 90.4 fl (80.0-96.0); MONO # 0.8 10^3/uL (0.0-0.8); NEUTROPHILS # 6.1 10^3/uL (1.8-7.7); NEUTROPHILS % 70.9 % (36.0-66.0); PLATELET COUNT, AUTOMATED 260 10^3/uL (150-450); RED BLOOD COUNT 4.18 10^6/uL (4.30-6.10); RED CELL DISTRIBUTION WIDTH 14.2 % (11.5-14.5); RETIC HEMOGLOBIN EQUIVALENT 34.1 pg (24-36); RETICULOCYTE # 78.6 10^9/L (17-77); RETICULOCYTE % 1.9 % (0.5-1.5); WHITE BLOOD COUNT 8.6 10^3/uL (4.0-10.0)
[2018-02-03 14:54] LABS: ALBUMIN 3.3 GM/DL (3.2-5.2); ALBUMIN/GLOBULIN RATIO 0.92 (1.00-1.93); ALKALINE PHOSPHATASE 118 U/L (45-117); ALT/SGPT 16 U/L (12-78); ANION GAP 9 MEQ/L (8-16); AST/SGOT 12 U/L (7-37); BILIRUBIN,TOTAL 0.3 MG/DL (0.2-1.0); BLOOD UREA NITROGEN 22 MG/DL (7-18); C REACTIVE PROTEIN QUANTITATIV 1.57 MG/DL (0.00-0.30); CALCIUM LEVEL 8.9 MG/DL (8.8-10.2); CARBON DIOXIDE LEVEL 27 MEQ/L (21-32); CHLORIDE LEVEL 106 MEQ/L (98-107); CHOLESTEROL LEVEL 138 MG/DL (<200); CHOLESTEROL RISK RATIO 3.285 (<5); CPK CREATINE PHOSPHOKINASE 58 U/L (39-308); GLOMERULAR FILTRATION RATE > 60.0 (>42); GLUCOSE, FASTING 79 MG/DL (70-100); HDL CHOLESTEROL 42 MG/DL (>40); LDL CHOLESTEROL 79 MG/DL (<100); MAGNESIUM LEVEL 2.3 MG/DL (1.8-2.4); NON-HDL-C 96 MG/DL; POTASSIUM SERUM 4.6 MEQ/L (3.5-5.1); SODIUM LEVEL 142 MEQ/L (136-145); TOTAL PROTEIN 6.9 GM/DL (6.4-8.2); TRIGLYCERIDES LEVEL 87 MG/DL (<150)
== END ==
LOC: M SFHCPLAZ 09:33
DX: D50.9 Iron deficiency anemia, unspecified (principal); E78.5 Hyperlipidemia, unspecified; N18.2 Chronic kidney disease, stage 2 (mild)
CPT/HCPCS: 82550

== ENCOUNTER → 2018-06-21 | Outpatient (REF) | payer MEDICARE ==
[~2018-06-21] MED LIST changes: +AMOX500T2 PO; +AMOX875T2 PO; +AZEL0.055; +BACITAB PO; +BIMA01SOL OU; +CALC600T31 PO; +CIPR-249 PO; -E-Z-GAS II EFFERVESCENT PACKET (SODIUM BICARB./CITRIC ACID/SIMETHICONE) As Ordered; -E-Z-HD 98% w/w 340GM SUSP BTL As Ordered; -E-Z-PAQUE 96% w/w SUSP 176GM BTL As Ordered; +FISH1000 PO; +FLAG500T PO; +FLOM0.4C39 PO; +FLUC10TA PO; +PROT1TAB2 PO; +RAMI1CAP24; +RAMI1CAP24 PO; +RAMI1CAP26 PO; +RANI300T PO; +SIMV40TA2 PO; +SIMV80TA13 PO; +SUCR1TA PO; +TIMO5OPG OU; +VITA10002 PO; +VITA100066 PO; +VITMTA PO
[2018-06-21 11:19] LABS: BASO % 0.5 % (0.0-1.0); EOS # 0.2 10^3/uL (0.0-0.50); EOS % 4.1 % (0.0-3.0); HEMOGLOBIN 13.7 g/dl (13.5-17.5); LYMPH # 1.5 10^3/uL (1.5-4.5); LYMPH % 24.7 % (24.0-44.0); MEAN CORPUSCULAR HEMOGLOBIN 30.1 pg (27.0-33.0); MEAN CORPUSCULAR HGB CONC 32.6 g/dl (32.0-36.5); MEAN CORPUSCULAR VOLUME 92.3 fl (80.0-96.0); MONO # 0.5 10^3/uL (0.0-0.8); MONO % 8.4 % (0.0-5.0); NEUTROPHILS # 3.6 10^3/uL (1.8-7.7); NEUTROPHILS % 61.8 % (36.0-66.0); PLATELET COUNT, AUTOMATED 176 10^3/uL (150-450); RED BLOOD COUNT 4.55 10^6/uL (4.30-6.10); WHITE BLOOD COUNT 5.9 10^3/uL (4.0-10.0)
[2018-06-21 11:37] LABS: HEMOGLOBIN A1c 5.6 %
[2018-06-21 11:51] LABS: ALBUMIN 3.7 GM/DL (3.2-5.2); ALT/SGPT 22 U/L (12-78); BILIRUBIN,TOTAL 0.3 MG/DL (0.2-1.0); BLOOD UREA NITROGEN 28 MG/DL (7-18); C REACTIVE PROTEIN QUANTITATIV 0.34 MG/DL (0.00-0.30); CALCIUM LEVEL 8.7 MG/DL (8.8-10.2); CARBON DIOXIDE LEVEL 28 MEQ/L (21-32); CHLORIDE LEVEL 106 MEQ/L (98-107); CHOLESTEROL LEVEL 146 MG/DL (<200); CHOLESTEROL RISK RATIO 3.106 (<5); CPK CREATINE PHOSPHOKINASE 66 U/L (39-308); CREATININE FOR GFR 1.06 MG/DL (0.70-1.30); FREE T4 0.91 NG/DL (0.76-1.46); GLOMERULAR FILTRATION RATE > 60.0 (>42); GLUCOSE, FASTING 105 MG/DL (70-100); HDL CHOLESTEROL 47 MG/DL (>40); LDL CHOLESTEROL 79 MG/DL (<100); NON-HDL-C 99 MG/DL; POTASSIUM SERUM 4.6 MEQ/L (3.5-5.1); SODIUM LEVEL 139 MEQ/L (136-145); TOTAL PROTEIN 6.6 GM/DL (6.4-8.2); TRIGLYCERIDES LEVEL 102 MG/DL (<150)
== END ==
LOC: M SFHCPLAZ 08:29
PROVIDERS: ATTEND Family Medicine
DX: D50.9 Iron deficiency anemia, unspecified (principal); E78.5 Hyperlipidemia, unspecified; R73.01 Impaired fasting glucose; N40.1 Benign prostatic hyperplasia with lower urinary tract symptoms
CPT/HCPCS: 36415; 80053; 80061; 82550; 83036; 83525; 84439; 84443; 85025; 85046; 86140; G0103

== ENCOUNTER → 2019-01-30 | Outpatient (REF) | payer MEDICARE ==
[~2019-01-30] MED LIST changes: +COLA100C5 PO; +CYAN100049 PO; +IBUP-1422 PO; +OCUVTA PO; +OMEP-218 PO; -SIMV40TA2 PO; +SIMV40TA20 PO; +TIMO0.5S29 OU; +TIMO0.5S7 OU; -TIMO5OPG OU; -VITA10002 PO; +ZOCO40TA PO
[2019-01-30 11:27] LABS: BASO # 0.1 10^3/uL (0.0-0.2); BASO % 0.7 % (0.0-1.0); EOS # 0.2 10^3/uL (0.0-0.5); HEMATOCRIT 42.6 % (42.0-52.0); LYMPH # 1.7 10^3/uL (1.5-5.0); LYMPH % 23.1 % (24.0-44.0); MEAN CORPUSCULAR HEMOGLOBIN 31.5 pg (27.0-33.0); MEAN CORPUSCULAR HGB CONC 32.9 g/dl (32.0-36.5); MEAN CORPUSCULAR VOLUME 95.9 fl (80.0-96.0); MONO # 0.7 10^3/uL (0.0-0.8); MONO % 9.6 % (0.0-5.0); NEUTROPHILS # 4.6 10^3/uL (1.5-8.5); NEUTROPHILS % 63.1 % (36.0-66.0); PLATELET COUNT, AUTOMATED 227 10^3/uL (150-450); RED BLOOD COUNT 4.44 10^6/uL (4.30-6.10); WHITE BLOOD COUNT 7.3 10^3/uL (4.0-10.0)
[2019-01-30 11:41] LABS: ALBUMIN 3.6 GM/DL (3.2-5.2); ALT/SGPT 22 U/L (12-78); BILIRUBIN,TOTAL 0.5 MG/DL (0.2-1.0); BLOOD UREA NITROGEN 32 MG/DL (7-18); CALCIUM LEVEL 8.9 MG/DL (8.8-10.2); CARBON DIOXIDE LEVEL 27 MEQ/L (21-32); CHLORIDE LEVEL 108 MEQ/L (98-107); FREE T4 0.97 NG/DL (0.76-1.46); GLOMERULAR FILTRATION RATE > 60.0 (>42); GLUCOSE, FASTING 106 MG/DL (70-100); POTASSIUM SERUM 4.8 MEQ/L (3.5-5.1); SODIUM LEVEL 141 MEQ/L (136-145); TOTAL PROTEIN 6.5 GM/DL (6.4-8.2)
[2019-01-30 11:42] LABS: THYROID PEROXIDASE ANTIBODY < 28.0 U/ML (<60.0)
[2019-02-01 00:06] LABS: PSA % FREE 20.9 % (.); PSA FREE 1.34 ng/mL; PSA TOTAL 6.4 ng/mL (0.0-4.0)
== END ==
LOC: M SFHCPLAZ 08:16
PROVIDERS: ATTEND Family Medicine
DX: I10 Essential (primary) hypertension (principal); E03.9 Hypothyroidism, unspecified; N40.1 Benign prostatic hyperplasia with lower urinary tract symptoms; Z79.899 Other long term (current) drug therapy

== ENCOUNTER 2019-05-05 12:44 | Day surgery (SDC) | payer MEDICARE ==
[~2019-05-05] VITALS: Ht 175.3 cm; Wt 90.3 kg
[~2019-05-05 12:44] MED LIST changes: +LIDOCAINE 2% INJ 100 MG/5 ML SDV (FOR ANES.) As Ordered ONE; +NS 1,000 ML IV ONE; +PROPOFOL 200 MG/20 ML VIAL As Ordered ONE
--- NOTE | 2019-05-05 14:31 | ROOR ---
Patient Name: Brendan Almonte Procedure Date: 05/05/2019 2:15 PM Date of : 1940 Age: 78 Room: [facility] Gender: Male Note Status: Finalized Procedure: Upper GI endoscopy Indications: Surveillance for malignancy due to personal history of Yeung's esophagus, Heartburn Providers: Deshawn APPIAH MD Referring MD: Mello Perez MD Requesting Provider: Medicines: Monitored Anesthesia Care Complications: No immediate complications. Procedure: Pre-Anesthesia Assessment: - The heart rate, respiratory rate, oxygen saturations, blood pressure, adequacy of pulmonary ventilation, and response to care were monitored throughout the procedure. The Endoscope was introduced through the mouth, and advanced to the second part of duodenum. The upper GI endoscopy was accomplished without difficulty. The patient tolerated the procedure well. Findings: There were esophageal mucosal changes consistent with short-segment Yeung's esophagus present in the lower third of the esophagus. The maximum longitudinal extent of these mucosal changes was 2 cm in length. Mucosa was biopsied with a cold forceps for histology randomly in the lower third of the esophagus and from 34 to 36 cm from the incisors. A total of 2 specimen bottles were sent to pathology. No other significant abnormalities were identified in a careful examination of the esophagus. A medium-sized hiatal hernia was present. No other significant abnormalities were identified in a careful examination of the stomach. The examined duodenum was normal. 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 Biopsied. - Medium-sized hiatal hernia. - Otherwise normal exam to second portion of duodenum. Recommendation: - Use Prilosec (omeprazole) 20 mg PO BID indefinitely. - Repeat upper endoscopy in 3 years for surveillance based on pathology results. Deshawn Appiah MD Deshawn APPIAH MD 05/05/2019 2:31:26 PM Electronically signed by Deshawn APPIAH MD Number of Addenda: 0 Note Initiated On: 05/05/2019 2:15 PM Estimated Blood Loss: Estimated blood loss: none.
[2019-05-05 15:04] VITALS: BP 127/83
== END 2019-05-05 15:04 | disposition home or self-care (01) ==
LOC: M OPP 12:44
PROVIDERS: ATTEND Internal Medicine Gastroenterology
DX: K22.70 Barrett's esophagus without dysplasia (principal); K44.9 Diaphragmatic hernia without obstruction or gangrene; R12 Heartburn; Z79.899 Other long term (current) drug therapy; Z88.8 Allergy status to other drugs, medicaments and biological substances

== ENCOUNTER 2019-07-06 07:39 | Day surgery (SDC) | payer MEDICARE ==
[~2019-07-06] VITALS: Ht 175.3 cm; Wt 89.8 kg
[~2019-07-06 07:39] MED LIST changes: +BSS IRR 500ML/OMIDRIA 4ML IRR BAG (OR ONLY) (J1097 PER ML) As Ordered ONE; +CALC600T60 PO; +CEFUROXIME 1MG/0.1ML INTRACAMERAL INJ As Ordered ONE; +DUOVISC (0.50ML VISCOAT/0.55ML PROVISC) OPHTH KIT As Ordered ONE; +LATA0.0015 OU; +LIDOCAINE 1% MDV 20ML VIAL SQ PRN; -LIDOCAINE 2% INJ 100 MG/5 ML SDV (FOR ANES.) As Ordered ONE; +MIDAZOLAM INJ 2 MG/2 ML VIAL (J2250) As Ordered ONE; -NS 1,000 ML IV ONE; +OFLOXACIN 0.3 % (OCUFLOX) OPTH SOL 5ML OS ONE; +PHENYLEPHRINE 2.5% OPHTH SOL 2ML OS ONE; +POVIDONE-IODINE 5% OPHTH PREP SOL 30ML As Ordered ONE; +PROPARACAINE 0.5% OPHTH SOL 15ML OS ONE; -PROPOFOL 200 MG/20 ML VIAL As Ordered ONE; +SAVITAB PO; +TROPICAMIDE 1% OPHTH SOLN 2ML OS ONE; +fentaNYL 100 MCG/2 ML INJECTION (J3010) As Ordered ONE
[2019-07-06 09:53] VITALS: BP 133/66
--- NOTE | 2019-07-07 22:08 | RO ---
DATE OF PROCEDURE: 07/06/2019 PREOPERATIVE DIAGNOSES: 1. Visually significant nuclear sclerotic cataract left eye. 2. Primary open angle glaucoma, moderate stage left eye. POSTOPERATIVE DIAGNOSES: 1. Visually significant nuclear sclerotic cataract left eye. 2. Primary open angle glaucoma, moderate stage left eye. PROCEDURE: 1. Cataract extraction with use of phacoemulsification and placement of intraocular lens, AU00T0 15.0 D, left eye. 2. Placement of Glaukos iStent left eye. SURGEON: Brennan Danielle DO CHILD WELFARE WORKER: None. ANESTHESIA: Local with monitored anesthesia care (MAC). COMPLICATIONS: None. POSTOPERATIVE CONDITION: Stable. INDICATIONS FOR SURGERY: 1. Blurred vision affecting patients activities of daily living. DESCRIPTION OF PROCEDURE: The patient was seen in the preoperative area and properly identified. The correct operative eye was identified and marked. The patient received topical anesthetic, antibiotics, and topical dilating drops. The patient was then transferred to the operating room. The correct side was re-identified, and a time-out was performed. The eye was prepped and draped in a sterile fashion. The eyelids were isolated with Tegaderm tape, and the lids were held open with an adjustable speculum. A 1.0 mm paracentesis incision was made. Intraocular preservative-free Shugarcaine was then injected into the anterior chamber. Viscoelastic was then injected into the anterior chamber through the paracentesis. Using a 2.4 mm sharp-tipped keratome, the anterior chamber was entered via a temporal clear cornea incision. A continuous curvilinear capsulorrhexis was created with Utrata forceps. Hydrodissection was performed with balanced salt solution (BSS) on a blunt cannula until the nucleus was able to rotate freely. The crystalline lens was phacoemulsified and aspirated. Irrigation/aspiration was used to remove the cortical material. Cohesive viscoelastic was placed into the capsular bag to deepen it. The implant was placed into the capsular bag and allowed to unfold. Placement was confirmed by visualizing the anterior capsulorrhexis. Additional viscoelastic was placed in the anterior chamber and on top of the cornea. The head was untaped and rotated away. The microscope was rotated to 45 degrees. A gonioprism was placed on the cornea, and the angle was visualized. An iStent was placed into the trabecular meshwork without difficulty. A small gush of heme was noted at the iStent snorkel tip, indicating appropriate placement. A gentle tapping motion was used to seat the stent into position. The head was placed face up and the microscope to 0 degrees. Irrigation/aspiration was used to remove the viscoelastic. The clear corneal incision was hydrated with BSS on a blunt cannula. The lens was well positioned. The incisions were then tested for leaks and found to be negative. The eye was then palpated for appropriate pressure and adjusted accordingly with BSS. The eyelid speculum was then carefully removed. A shield was placed over the eye. The patient tolerated the procedure well and was discharged to the recovery unit in a stable condition. JOHNNY
== END 2019-07-06 10:27 | disposition home or self-care (01) ==
LOC: M SDC 07:39
PROVIDERS: ATTEND Ophthalmology
DX: H25.12 Age-related nuclear cataract, left eye (principal); H40.812 Glaucoma with increased episcleral venous pressure, left eye; I48.91 Unspecified atrial fibrillation; I10 Essential (primary) hypertension; E78.5 Hyperlipidemia, unspecified; N40.0 Benign prostatic hyperplasia without lower urinary tract symptoms; K21.9 Gastro-esophageal reflux disease without esophagitis; Z87.891 Personal history of nicotine dependence; Z79.899 Other long term (current) drug therapy
CPT/HCPCS: 66183; 66984; C1783; J1097; J2250; J3010; V2632

== ENCOUNTER → 2020-01-04 | Outpatient (CLI) | payer MEDICARE ==
[~2020-01-04] MED LIST changes: -BSS IRR 500ML/OMIDRIA 4ML IRR BAG (OR ONLY) (J1097 PER ML) As Ordered ONE; -CEFUROXIME 1MG/0.1ML INTRACAMERAL INJ As Ordered ONE; -DUOVISC (0.50ML VISCOAT/0.55ML PROVISC) OPHTH KIT As Ordered ONE; -LIDOCAINE 1% MDV 20ML VIAL SQ PRN; -MIDAZOLAM INJ 2 MG/2 ML VIAL (J2250) As Ordered ONE; -OFLOXACIN 0.3 % (OCUFLOX) OPTH SOL 5ML OS ONE; -PHENYLEPHRINE 2.5% OPHTH SOL 2ML OS ONE; -POVIDONE-IODINE 5% OPHTH PREP SOL 30ML As Ordered ONE; -PROPARACAINE 0.5% OPHTH SOL 15ML OS ONE; -TROPICAMIDE 1% OPHTH SOLN 2ML OS ONE; -fentaNYL 100 MCG/2 ML INJECTION (J3010) As Ordered ONE
[2020-01-04 14:39] LABS: HEMOGLOBIN 15.1 g/dl (13.5-17.5); MEAN CORPUSCULAR HGB CONC 32.8 g/dl (32.0-36.5); MEAN CORPUSCULAR VOLUME 94.5 fl (80.0-96.0); PLATELET COUNT, AUTOMATED 216 10^3/uL (150-450); RED BLOOD COUNT 4.87 10^6/uL (4.30-6.10); WHITE BLOOD COUNT 9.6 10^3/uL (4.0-10.0)
[2020-01-04 16:01] LABS: ALBUMIN 3.7 GM/DL (3.2-5.2); ALT/SGPT 23 U/L (12-78); BILIRUBIN,TOTAL 0.3 MG/DL (0.2-1.0); BLOOD UREA NITROGEN 17 MG/DL (7-18); CALCIUM LEVEL 9.7 MG/DL (8.8-10.2); CARBON DIOXIDE LEVEL 29 MEQ/L (21-32); CHLORIDE LEVEL 106 MEQ/L (98-107); CREATININE FOR GFR 1.02 MG/DL (0.70-1.30); FERRITIN 47 NG/ML (26-388); FREE T4 1.09 NG/DL (0.76-1.46); GLOMERULAR FILTRATION RATE > 60.0 (>42); GLUCOSE, FASTING 85 MG/DL (70-100); IRON (FE) 86 UG/DL (65-175); PERCENT SATURATION 29.4 % (19.7-50.0); SODIUM LEVEL 137 MEQ/L (136-145); TOTAL IRON BINDING CAPACITY 293 UG/DL (250-450); TOTAL PROTEIN 7.1 GM/DL (6.4-8.2)
== END ==
LOC: M PLALAB 12:01
PROVIDERS: ATTEND Family Medicine
DX: D50.9 Iron deficiency anemia, unspecified (principal); I10 Essential (primary) hypertension; R73.9 Hyperglycemia, unspecified

== ENCOUNTER → 2020-06-27 | Outpatient (REF) | payer MEDICARE ==
[2020-06-27 14:22] LABS: BASO # 0.1 10^3/uL (0.0-0.2); BASO % 0.6 % (0.0-1.0); EOS # 0.2 10^3/uL (0.0-0.5); EOS % 2.3 % (0.0-3.0); HEMATOCRIT 45.9 % (42.0-52.0); HEMOGLOBIN 14.7 g/dl (13.5-17.5); LYMPH # 1.2 10^3/uL (1.5-5.0); LYMPH % 11.5 % (24.0-44.0); MEAN CORPUSCULAR HEMOGLOBIN 29.5 pg (27.0-33.0); MONO # 0.8 10^3/uL (0.0-0.8); MONO % 7.7 % (0.0-5.0); NEUTROPHILS # 8.1 10^3/uL (1.5-8.5); NEUTROPHILS % 77.3 % (36.0-66.0); PLATELET COUNT, AUTOMATED 254 10^3/uL (150-450); RED BLOOD COUNT 4.99 10^6/uL (4.30-6.10); WHITE BLOOD COUNT 10.5 10^3/uL (4.0-10.0)
[2020-06-27 14:29] LABS: ALBUMIN 3.5 GM/DL (3.2-5.2); ALT/SGPT 18 U/L (12-78); BILIRUBIN,TOTAL 0.3 MG/DL (0.2-1.0); BLOOD UREA NITROGEN 22 MG/DL (7-18); CALCIUM LEVEL 9.3 MG/DL (8.8-10.2); CARBON DIOXIDE LEVEL 31 MEQ/L (21-32); CHLORIDE LEVEL 106 MEQ/L (98-107); CREATININE FOR GFR 0.94 MG/DL (0.70-1.30); FERRITIN 46 NG/ML (26-388); GLOMERULAR FILTRATION RATE > 60.0 (>42); GLUCOSE, FASTING 97 MG/DL (70-100); NT-PRO BNP 78 PG/ML (<450); POTASSIUM SERUM 5.1 MEQ/L (3.5-5.1); SODIUM LEVEL 141 MEQ/L (136-145); TOTAL PROTEIN 7.1 GM/DL (6.4-8.2)
[2020-06-27 14:34] LABS: TOTAL 25(OH) VITAMIN D 18.7 NG/ML (30.0-100.0)
[2020-06-27 14:35] LABS: PTH INTACT 72.3 PG/ML (18.5-88.0)
[2020-06-27 15:40] LABS: HEMOGLOBIN A1c 5.3 %
== END ==
LOC: M SFHCPLAZ 11:24
PROVIDERS: ATTEND Family Medicine
DX: D50.9 Iron deficiency anemia, unspecified (principal); E53.8 Deficiency of other specified B group vitamins; E55.9 Vitamin D deficiency, unspecified; R73.01 Impaired fasting glucose

== ENCOUNTER → 2020-11-07 | Outpatient (REF) | payer MEDICARE ==
[2020-11-07 15:44] LABS: BASO % 0.5 % (0.0-1.0); EOS # 0.3 10^3/uL (0.0-0.5); EOS % 3.5 % (0.0-3.0); HEMATOCRIT 43.9 % (42.0-52.0); HEMOGLOBIN 14.1 g/dl (13.5-17.5); LYMPH # 1.4 10^3/uL (1.5-5.0); MEAN CORPUSCULAR HEMOGLOBIN 30.3 pg (27.0-33.0); MEAN CORPUSCULAR HGB CONC 32.1 g/dl (32.0-36.5); MEAN CORPUSCULAR VOLUME 94.4 fl (80.0-96.0); MONO # 0.7 10^3/uL (0.0-0.8); MONO % 8.2 % (2.0-8.0); NEUTROPHILS # 5.6 10^3/uL (1.5-8.5); NEUTROPHILS % 69.7 % (36.0-66.0); PLATELET COUNT, AUTOMATED 201 10^3/uL (150-450); RED BLOOD COUNT 4.65 10^6/uL (4.30-6.10); WHITE BLOOD COUNT 8.1 10^3/uL (4.0-10.0)
[2020-11-07 15:48] LABS: HEMATOCRIT 43.9 % (42.0-52.0)
[2020-11-07 16:10] LABS: ALBUMIN 3.5 GM/DL (3.2-5.2); ALT/SGPT 19 U/L (12-78); BILIRUBIN,TOTAL 0.3 MG/DL (0.2-1.0); BLOOD UREA NITROGEN 23 MG/DL (7-18); CALCIUM LEVEL 8.9 MG/DL (8.8-10.2); CARBON DIOXIDE LEVEL 28 MEQ/L (21-32); CHLORIDE LEVEL 109 MEQ/L (98-107); CHOLESTEROL LEVEL 148 MG/DL (<200); CHOLESTEROL RISK RATIO 3.894 (<5); CREATININE FOR GFR 0.94 MG/DL (0.70-1.30); FREE T4 1.06 NG/DL (0.76-1.46); GLOMERULAR FILTRATION RATE > 60.0 (>42); GLUCOSE, FASTING 104 MG/DL (70-100); HDL CHOLESTEROL 38 MG/DL (>40); LDL CHOLESTEROL 82 MG/DL (<100); NON-HDL-C 110 MG/DL; POTASSIUM SERUM 4.9 MEQ/L (3.5-5.1); SODIUM LEVEL 141 MEQ/L (136-145); TOTAL PROTEIN 6.9 GM/DL (6.4-8.2); TRIGLYCERIDES LEVEL 142 MG/DL (<150)
[2020-11-07 16:12] LABS: TOTAL 25(OH) VITAMIN D 32.4 NG/ML (30.0-100.0)
[2020-11-07 16:13] LABS: PTH INTACT 78.9 PG/ML (18.5-88.0); VITAMIN B12 LEVEL 334 PG/ML (247-911)
== END ==
LOC: M SFHCPLAZ 12:27
PROVIDERS: ATTEND Family Medicine
DX: D50.9 Iron deficiency anemia, unspecified (principal); E53.8 Deficiency of other specified B group vitamins; E78.5 Hyperlipidemia, unspecified; E55.9 Vitamin D deficiency, unspecified

== ENCOUNTER 2021-02-13 11:42 | Inpatient (IN) | payer MEDICARE ==
[~2021-02-13] VITALS: Ht 175.3 cm; Wt 81.8 kg
--- NOTE | 2021-02-13 12:21 | REP ---
INDICATION: CHEST PAIN. COMPARISON: Comparison chest x-ray December 02, 2017. TECHNIQUE: Portable upright AP chest radiograph. FINDINGS: The lungs are well inflated and free of infiltrate. Pleural angles are sharp. Heart size is normal. Pulmonary vasculature is not increased. EKG monitoring electrodes are seen. IMPRESSION: No active disease. <Electronically signed by Carlos Bryant > 02/13/21 [id number]
[2021-02-13 12:25] LABS: HEMATOCRIT 46.7 % (42.0-52.0); HEMOGLOBIN 15.8 g/dl (13.5-17.5); MEAN CORPUSCULAR HEMOGLOBIN 29.3 pg (27.0-33.0); MEAN CORPUSCULAR HGB CONC 33.8 g/dl (32.0-36.5); MEAN CORPUSCULAR VOLUME 86.5 fl (80.0-96.0); PLATELET COUNT, AUTOMATED 399 10^3/uL (150-450); WHITE BLOOD COUNT 25.5 10^3/uL (4.0-10.0)
[2021-02-13] MEDS ORDERED: MORPHINE 2 MG/ML 1ML VIAL (J2270) IV ONE (12:35)
[2021-02-13 12:49] LABS: BLOOD UREA NITROGEN 80 MG/DL (7-18); CARBON DIOXIDE LEVEL 21 MEQ/L (21-32); CHLORIDE LEVEL 95 MEQ/L (98-107); CK-MB VALUE MASS < 1.0 NG/ML (<3.6); CPK CREATINE PHOSPHOKINASE 18 U/L (39-308); CREATININE FOR GFR 1.91 MG/DL (0.70-1.30); GLOMERULAR FILTRATION RATE 36.5 (>42); GLUCOSE, FASTING 120 MG/DL (70-100); MAGNESIUM LEVEL 2.5 MG/DL (1.8-2.4); MB/CK RELATIVE INDEX 5.56 (< OR =4); SODIUM LEVEL 130 MEQ/L (136-145); TROPONIN I < 0.02 NG/ML (< 0.10)
[2021-02-13 12:55] LABS: ANISOCYTOSIS 1+; LYMPHOCYTES 2 % (16-44); MONOCYTES 10 % (0-5); NEUTROPHILS 86 % (28-66); PLATELET ESTIMATE NORMAL (NORMAL)
[2021-02-13] MEDS ORDERED: NS 1,000 ML IV ONE (13:00)
--- NOTE | 2021-02-13 14:12 | REP ---
INDICATION: left sided chest pain COMPARISON: 12/29/2017 the latest prior a contrast-enhanced exam TECHNIQUE: Standard helical technique without intravenous contrast. FINDINGS: There is no evidence of mediastinal or hilar adenopathy. There are no pleural or pericardial effusions. The imaged upper abdomen shows ascites and a partially imaged large left renal cyst also seen on the prior exam. Bone window technique throughout the examination shows no significant change in appearance of the osseous structures. Evaluation of the lung escobar shows significant respiratory motion artifact on all images obscuring the fine detail to such a degree a significant nodule could be obscured. There is no evidence of a mass or patchy parenchymal opacity. There are mild chronic lung field changes status quo. IMPRESSION: Limited exam, as described above, showing no evidence of acute intrathoracic disease. The upper abdomen shows ascites representing a change from the prior exam. <Electronically signed by Viktor Thompson > 02/13/21 [id number]
[2021-02-13] MEDS ORDERED: NS 1,450 ML in IV 1 EA IV ONE (14:20)
[2021-02-13] MEDS ORDERED: cefTRIAXone SOD 2 GM in D5W MINI-BAG PLUS 50 ML IV ONE (14:20)
[2021-02-13 15:15] VITALS: BP 126/66
--- NOTE | 2021-02-13 16:19 | REP ---
INDICATION: left flank pain/abdominal pain; further evaluate ascites. COMPARISON: Multiple the latest 11/04/2017 a contrast-enhanced exam TECHNIQUE: Standard helical technique without intravenous or oral bowel preparatory contrast. This causes exam limitations. FINDINGS: There are hepatic and renal cysts status quo. The gallbladder is unremarkable. A moderate amount of ascites has developed since the last exam. There is free intraperitoneal air. There are multiple fluid-filled mildly dilated small bowel loops. The colon is collapsed with the exception of a short segment of the sigmoid colon with there is advanced diverticulosis. Limited evaluation of the abdominal aorta and para-aortic regions show no gross abnormalities. Limited evaluation of the pancreas and adrenal glands show no gross abnormalities. Bone window technique throughout the exam shows chronic spinal degenerative changes status quo. IMPRESSION: 1. There is free intraperitoneal air consistent with bowel perforation. The exact lead point cannot be identified. This finding was discussed with nurse practitioner, Deshawn Rya, the patient is immediate healthcare provider. 2. There is what appears to be multiloculated ascites with a nodular appearing mesentery. This could be secondary to carcinomatosis. Certainly, concomitant inflammatory/infectious etiology cannot be ruled out. <Electronically signed by Viktor Thompson > 02/13/21 [id number]
[2021-02-13] MEDS ORDERED: CIPROFLOXACIN 400 MG in IV 1 EA IV ONE (16:25)
[2021-02-13] MEDS ORDERED: metroNIDAZOLE 500 MG in IV 1 EA IV ONE (16:25)
[2021-02-13] MEDS ORDERED: MORPHINE 4 MG/ML 1ML VIAL/SYRINGE (J2270) IV ONE (17:15)
[2021-02-13] MEDS ORDERED: OMEP40CA4 PO (17:37)
[2021-02-13] MEDS ORDERED: DICL1GEL3 TOP (17:37)
[2021-02-13] MEDS ORDERED: ZOCO80TA PO (17:37)
[2021-02-13] MEDS ORDERED: HOME MED LIST COMPLETE! XX SCH (17:40)
[2021-02-13] MEDS ORDERED: MORPHINE 10MG/0.5ML ORAL CONCENTRATE SOLUTION U/D SL PRN (18:10)
[2021-02-13] MEDS ORDERED: SCOPOLAMINE 1MG TRANSDERMAL PATCH TOP PRN (18:10)
[2021-02-13] MEDS ORDERED: ONDANSETRON 4MG/2ML VIAL IV PRN (18:10)
[2021-02-13] MEDS ORDERED: MORPHINE 2 MG/ML 1ML VIAL (J2270) IV PRN (18:10)
[2021-02-13] MEDS ORDERED: ACETAMINOPHEN TAB 650MG DOSE (2X325MG) PO PRN (18:10)
[2021-02-13] MEDS ORDERED: BISACODYL 10 MG SUPP PR PRN (18:10)
[2021-02-13] MEDS ORDERED: FLEET ENEMA PR PRN (18:10)
[2021-02-13] MEDS ORDERED: HYOSCYAMINE SULFATE 0.125 MG SUBL TABLET PO PRN (18:10)
[2021-02-13] MEDS ORDERED: LORazepam 2 MG/ML VIAL IV PRN (18:10)
[2021-02-13] MEDS ORDERED: ATROPINE SULFATE 1% OP SOLN 2 ML BTL SL PRN (18:10)
[2021-02-13] MEDS ORDERED: LORazepam 1 MG TAB PO PRN (18:10)
--- NOTE | 2021-02-13 19:12 | HPEPDOC ---
[facility] Medical History & Physical Date of Admission Feb 13, 2021 Date of Service: Feb 13, 2021 Primary Care Physician: Mello Perez M.D. Attending Physician: KEEGAN STARK DO History and Physical CHIEF COMPLAINT: Shortness of breath and back pain HISTORY OF PRESENT ILLNESS: Patient is a 80-year-old male who presented to the emergency department with a 7-day history of sudden onset severe back pain with difficulty breathing. Patient states he has been having a difficult time breathing for the last 7 days. Patient states that he had severe back pain radiating around his flanks that started 7 days ago all of a sudden. Patient has been trying to deal with it at home but the pain became so great today that he decided to come into the emergency department. Patient states that he is still having the pain at this time in his back and is still having difficulty breathing. Patient has been vomiting. Patient is not really been able to eat much over the last 7 days but has been able to drink water. Patient denies any diarrhea or constipation. Patient denies any issues urinating. Patient states that the vomit looks black to green in color and has been doing it numerous times. Patient is also been coughing up a black to green phlegm. Patient denies any chest pain. In the emergency department, the patient had a CT scan that showed free air in the peritoneum with either inflammatory changes or carcinomatosis. Initially general surgery was called and offered the patient surgery to going repair a possible perforated stomach ulcer or perforated bowel however, the patient said he did not want to go through with surgery. Patient had ceftriaxone, ciprofloxacin, and metronidazole in the emergency department. Patient had a lactic acidosis of 7.1 and received IV fluid hydration. Patient's heart rate was quite elevated in the 150s and 180s by the time of my evaluation. Patient was hypotensive by the time of my evaluation and I went in to ask patient whether or not he would like a central line as part of the treatment. Patient was admitted via the hospitalist service. PAST MEDICAL HISTORY: 1. Hypertension. 2. Hyperlipidemia. 3. Impaired fasting glucose. 4. Cervical lumbar spondylosis 5. History of nicotine addiction 6. GERD 7. Obesity 8. BPH 9. Vitamin D deficiency 10. Bilateral hand osteoarthritis PAST SURGICAL HISTORY: 1. Prostate biopsy. SOCIAL HISTORY: Patient is a former smoker and will occasionally drink alcohol. Patient denies illicit drug use FAMILY HISTORY: Father of bladder cancer at 86. Mother at 92 CHF and hypothyroid ALLERGIES: Please see below. REVIEW OF SYSTEMS: General: Patient denies fevers HEENT: Patient denies headaches Cardiovascular: Patient denies chest pain Respiratory: Patient reports shortness of breath, cough as above GI: Patient reports abdominal pain, nausea, and vomiting as above : Patient denies increased frequency or pain with urination Extremities: Patient denies swelling or pain in extremities Neurological: Patient denies numbness or tingling in legs Skin: Patient denies any new rashes or lesions. Hematologic: Patient denies any easy bruising. Lymphatic: Patient denies any lumps lumps or bumps in neck, axilla, or groin HOME MEDICATIONS: Please see below. PHYSICAL EXAMINATION: VITAL SIGNS: Temperature 97.6, pulse 153, respiratory rate 32, blood pressure 126/66, pulse oximetry 96% on room air. General: Alert and oriented male patient who was laying on the stretcher breathing very quickly with nasal cannula oxygen in place when I walked in the room. Patient appeared to be in moderate to severe distress HEENT: Normocephalic, atraumatic, moist mucous membranes. Neck: No lymphadenopathy or thyromegaly Cardiac: Tachycardic into the 150s to 180s with a regular rhythm. No murmurs auscultated Pulm: Clear to auscultation bilaterally. No wheezes, rhonchi, rales Abd: Distended abdomen that was tender to palpation throughout the abdomen, diminished bowel sounds Ext: 1+ pitting edema bilateral lower extremities Neuro: Patient was able to move all 4 extremities on command and reported equal sensation light touch in all 4 extremities. Skin: Skin of the head, neck, upper and lower extremities was examined did not show any evidence of rash or wounds. LABORATORY DATA: See below. IMAGING: Chest x-ray performed on 02/13/2021 is reported to show no active disease CT of the chest without contrast from the 02/13/2021 is reported to show limited exam showing no evidence of acute intrathoracic disease. The upper abdomen shows ascites representing a change from the prior exam. CT of the abdomen pelvis performed without IV contrast on 02/13/2021 was reported to show there is free intraperitoneal air consistent with bowel perforation. The exact lead point cannot be identified. This finding was discussed with charly hwang, Deshawn Ray, the patient's immediate healthcare provider. There is what appears to be multiloculated ascites with nodular appearing mesentery. This could secondary carcinomatosis. The certainly concomitant inflammatory/i nfectious etiology cannot be ruled out MICROBIOLOGY: Please see below. ASSESSMENT: 80-year-old male who presented the emergency department with 7-day history of sudden onset shortness of breath with abdominal pain who was found to have intraperitoneal free air with loculated ascites . PLAN: 1. Intraperitoneal free air. Patient was offered surgery by Dr. Saldivar however, the patient declined this. Patient initially was made DNR by emergency department provider however, when I went to speak with the patient Discussion was held about the goals of the patient's care. If Dr. Saldivar was not going to take the patient to the operating room, there was a very high likelihood that the patient would from the state that he was in since his heart rate was going at 180 bpm at the time of the discussion. Patient decided to elect comfort measures only. Patient did have a high mortality if the patient was to go to the operating room which was discussed with the patient. Plan was initially to give IV fluid hydration and antibiotics however, with the patient's breathing and heart rate, patient elected to go SUPERVISOR CAB as patient had a high mortality. 2. Tachycardia. Patient's heart rate was up around 180-200 when I was speaking with the patient. Patient was septic with lactic acidosis of 7.1. Patient elected for comfort measures only. 3. Sepsis. Patient was tachycardic, tachypneic, hypoxic, hypotensive, with a lactic acidosis and leukocytosis. Patient was given the sepsis bolus however, his vital signs did not improve. Patient was given ceftriaxone, ciprofloxacin, and metronidazole. Zosyn was going to be continued however, the patient elected comfort measures. 4. Hyponatremia. Patient hyponatremia is most likely secondary to dehydration. Patient received sepsis bolus however, sodium level not be rechecked as the patient elected comfort measures. 5. Acute kidney injury. Patient's creatinine on November 07, 2020 was 0.94. Creatinine today is 1.91. This most likely secondary to dehydration secondary to sepsis. Patient will not have this rechecked as the patient elected comfort measures. 6. Lactic acidosis. This may be secondary to sepsis but also could be se condary to possible bowel perforation. Patient has elected to go comfort measures to this would not be rechecked. 7. Multiloculated ascites. This could be secondary to carcinomatosis however, this could also be secondary to a perforated gastric ulcer that has cause intra- abdominal infection. Surgery was initially offered to the patient however, he declined this. After discussing the patient's prognosis with him, he has elected for comfort measures only. 8. DVT prophylaxis: Not indicated due to comfort measures 9. CODE STATUS: SUPERVISOR CAB, DNR/DNI. I had a long conversation with the patient with both patient's nurse and Dr. Truong of general surgery present in the room. I laid out the patient's prognosis as being very poor regardless of whether or not he goes to the operating room, which attempted to treat with IV antibiotics with an NG tube or if we elect for comfort measures only. After laying out all of the patient's options, patient stated "just let me " once I explained what comfort measures were to the patient patient agreed that he would like to be kept comfortable and would not like further invasive treatment. Patient had a new MOLST form filled out that was placed on the patient's chart. Disposition: Patient will be admitted to the medical surgical floor with hospice consult for the morning. Late entry: After admission orders have been placed, I was flagged down by the emergency from nurse who stated that he believes the patient is about to pass away. I went in to reevaluate the patient and the patient at 18:42. This was confirmed with asystole on the monitor as well as auscultation of the chest showing no heart sounds with no chest rise. Family was contacted. Vital Signs Vital Signs Date Time Temp Pulse Resp B/P (MAP) Pulse Ox O2 Delivery O2 Flow Rate FiO2 02/13/21 15:27 153 96 Room Air 02/13/21 15:15 126/66 (86) 02/13/21 13:20 97.6 32 Laboratory Data Labs 24H Laboratory Tests 2 02/13/21 12:11: Neutrophils (%) (Auto) , Nucleated Red Blood Cells % (auto) 0.0, Neutrophils 86H, Band Neutrophils 2, Lymphocytes (Manual) 2L, Monocytes (Manual) 10H, Anisocytosis 1+, Platelet Estimate NORMAL, Anion Gap 14, Glomerular Filtration Rate 36.5L, Calcium Level 9.0, Magnesium Level 2.5H, Total Creatine Kinase 18L, Creatine Kinase MB < 1.0, Creatine Kinase MB Relative Index 5.56H, Troponin I < 0.02 02/13/21 13:22: Lactic Acid Level 7.1*H 02/13/21 15:15: Urine Color STEPHANE, Urine Appearance HAZY, Urine pH 5.0, Urine Specific [place] 1.017, Urine Protein 1+H, Urine Glucose (UA) NEGATIVE, Urine Ketones TRACEH, Urine Blood 1+H, Urine Nitrite NEGATIVE, Urine Bilirubin NEGATIVE, Urine Urobilinogen 4.0H, Urine Leukocyte Esterase NEGATIVE, Urine WBC (Auto) 5H, Urine RBC (Auto) 2, Urine Hyaline Casts (Auto) 0, Urine Bacteria (Auto) 3+H, Urine Squamous Epithelial Cells 0, Urine Mucus (Auto) SMALL, Urine Sperm (Auto) CBC/BMP Laboratory Tests 02/13/21 12:11 Microbiology Microbiology 02/13/21 Respiratory Virus Panel (PCR) (SHIELA) - Final, Complete 02/13/21 Blood Culture, Received Pending 02/13/21 Blood Culture, Received Pending Home Medications Scheduled Calcium Carbonate (Calcium) 600 Mg Tablet, 600 MG PO DAILY Cyanocobalamin (Vitamin B-12) (Vitamin B-12) 1,000 Mcg Tab, 2,000 MCG PO DAILY Latanoprost/Pf (Latanoprost 0.005% Eye Drop) 7.5 Ml Drops, 1 DROP OU QHS Multivitamins (Thera M Plus Tablet) 1 Tab Tab, 1 TAB PO DAILY [place]-3 Fatty Acids/Fish Oil (Fish Oil 1,000 mg Capsule) 1 Each Capsule, 1,000 MG PO DAILY Omeprazole (Omeprazole) 40 Mg Capsule.dr, 40 MG PO DAILY Ramipril (Ramipril) 5 Mg Cap, 5 MG PO BID Simvastatin (Zocor) 80 Mg Tablet, 40 MG PO DAILY Tamsulosin HCl (Flomax) 0.4 Mg Cap, 0.4 MG PO QHS Timolol Maleate (Timolol Maleate) 0.5% 5ML Drops, 1 DROP OU BID Vits A,C,E/Zinc/Copper (Savision Tablet) 1 Each Tablet, 1 TAB PO DAILY Scheduled PRN Diclofenac Sodium (Diclofenac Sodium) 1% 100GM Gel..gram., 4 GM TOP QID PRN for PAIN LEVEL 1-4 APPLIES TO BACK Docusate Sodium (Colace) 100 Mg Capsule, 100 MG PO DAILY PRN for CONSTIPATION Allergies Coded Allergies: No Known Allergies (Unverified , 06/29/19) A-FIB/CHADSVASC A-FIB History Current/History of A-Fib/PAF?: No KEEGAN STARK DO Feb 13, 2021 19:11
--- NOTE | 2021-02-13 21:40 | ECGEPIP ---
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
--- NOTE | 2021-02-14 11:36 | CR ---
CONSULTATION DATE: 02/13/2021 REASON FOR CONSULTATION: Pneumoperitoneum. HISTORY OF PRESENT ILLNESS: The patient is a 80-year-old male who presented to the Emergency Room on 02/13/2021. He came in with a seven day history of severe back pain as well as some shortness of breath. He says that he has had a hard time breathing for seven days. He has not really taken any of his medications and has not really eaten much in those seven days. He did have a significantly elevated white count on admission as well as an abnormal CT scan that showed loculated ascites throughout the upper abdomen as well as some free air in the upper abdomen, no distinct source for it, however there was a concern for either perforated viscous versus carcinomatosis on his CT. I came into examine him in the Emergency Room. He was very tachypneic, hypertensive, and tachycardic in the ED. He already received some IV fluids and antibiotics. I had a long discussion with him explaining to him that there was a concern on his CT and that due to the nodularity of his mesentery and the loculated ascites this was most likely either a perforated ulcer that happened seven days ago with just loculated fluid collections versus carcinomatosis, either way with his exam, the recommendation was to proceed with surgery. I told him the alternative to surgery would be just to continue with IV fluids, antibiotics and see what happens. After a long 20 minute discussion, he decided to proceed with just antibiotic therapy. After that, I asked if he had any family members he wanted me to talk to, he denied. He said he only has a couple of sisters but he did not want to talk to them yet. I then went over his CT scan and all of his findings the second time to confirm that he truly did not want me to do anything and relayed that information back to the Emergency Room. The Hospitalist was called down to evaluate him. 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 PAST MEDICAL HISTORY: Hypertension, hyperlipidemia, cervical lumbar spondylosis, GERD, obesity, BPH, vitamin D deficiency, osteoarthritis. PAST SURGICAL HISTORY: Prostate biopsy. SOCIAL HISTORY: Denies drug, alcohol or tobacco abuse. FAMILY HISTORY: Noncontributory. ALLERGIES: None. HOME MEDICATIONS: Please see med rec. REVIEW OF SYSTEMS: Pertinent positives and negatives as stated in the HPI. PHYSICAL EXAMINATION: GENERAL: Patient is awake, alert, appears to be in respiratory distress. VITAL SIGNS: Pulse was anywhere from 150s to 220s, while I was talking to him he was tachypneic, breathing up to 40 to 50 breaths per minute. ABDOMEN: Soft, distended. Mild tenderness in the upper abdomen only. No rebound or guarding. EXTREMITIES: No clubbing or cyanosis. There is bilateral lower extremity edema. LABORATORY DATA: White count 25.5, hemoglobin 15.8, platelets 399,000. Potassium 4. Lactic acid 7.1. Creatinine 1.91. IMAGING: CT of the abdomen and pelvis showed free intraperitoneal air, multiple loculated ascites with a nodular appearing mesentery, could be secondary to carcinomatosis, certainly an inflammatory infectious etiology could not be ruled out as well. ASSESSMENT AND PLAN: Patient is a 80-year-old male. After a lengthy 30 to 45 minute discussion, he did finally choose to avoid surgery or any central line placement. With discussion with the Hospitalist he did choose to be WAGON DRILL OPERATOR. Prior to him even getting any of those orders placed, his heart stopped and he was pronounced at the bedside by the Hospitalist.
--- NOTE | 2021-02-14 17:47 | DS.PDOC ---
Discharge Summary General Date of Admission Feb 13, 2021 at 18:10 Date of Discharge 02/13/2021 at 18:42 Primary Care Physician: Mello Perez M.D. Attending Physician: KEEGAN STARK DO Specialist/Consultants Involve: ANNIA SORIA DO Discharge Summary PROCEDURES PERFORMED DURING STAY: [None]. ADMITTING DIAGNOSES: 1. Intraperitoneal free air. 2. Tachycardia 3. Sepsis 4. Hyponatremia 5. Acute kidney injury 6. Lactic acidosis 7. Multiloculated ascites DISCHARGE DIAGNOSES: 1. Intraperitoneal free air possibly secondary to perforated viscus 2. Tachycardia 3. Septic shock 4. Hyponatremia 5. Acute kidney injury 6. Lactic acidosis 7. Multiloculated ascites COMPLICATIONS/CHIEF COMPLAINT: Free Intraperitoneal Air. HISTORY OF PRESENT ILLNESS: Patient is a 80-year-old male who presented to the emergency department with a 7-day history of sudden onset severe back pain with difficulty breathing. Patient states he has been having a difficult time breathing for the last 7 days. Patient states that he had severe back pain radiating around his flanks that started 7 days ago all of a sudden. Patient has been trying to deal with it at home but the pain became so great today that he decided to come into the emergency department. Patient states that he is still having the pain at this time in his back and is still having difficulty breathing. Patient has been vomiting. Patient is not really been able to eat much over the last 7 days but has been able to drink water. Patient denies any diarrhea or constipation. Patient denies any issues urinating. Patient states that the vomit looks black to green in color and has been doing it numerous times. Patient is also been coughing up a black to green phlegm. Patient denies any chest pain. In the emergency department, the patient had a CT scan that showed free air in the peritoneum with either inflammatory changes or carcinomatosis. Initially general surgery was called and offered the patient surgery to going repair a possible perforated stomach ulcer or perforated bowel however, the patient said he did not want to go through with surgery. Patient h ad ceftriaxone, ciprofloxacin, and metronidazole in the emergency department. Patient had a lactic acidosis of 7.1 and received IV fluid hydration. Patient's heart rate was quite elevated in the 150s and 180s by the time of my evaluation. Patient was hypotensive by the time of my evaluation and I went in to ask patient whether or not he would like a central line as part of the t reatment. Patient was admitted via the hospitalist service. HOSPITAL COURSE: Patient decided after discussion with him prior to being admitted to the hospital to becomes comfort measures only due to his very poor prognosis regardless of what the treatment we chose would be. Patient was made SHANK MAKER around 6 PM on 02/13/2021. Patient was admitted with the comfort measures only order set at 18:10. I was later called into the room by the nurse stating that he believes the patient is most likely going to pass very soon. I went in to reevaluate the patient and I was in the room when the patient at 18:42. This was confirmed with asystole on the monitor as well as auscultation of the chest with no heart sounds and no chest rise. Patient's family was contacted. DISCHARGE MEDICATIONS: Please see below. ALLERGIES: Please see below. PHYSICAL EXAMINATION ON DISCHARGE: VITAL SIGNS: Please see below. Cardiac: No heart sounds in any field auscultated Pulmonary: No breath sounds and no chest rise LABORATORY DATA: Please see below. IMAGING: Chest x-ray performed on 02/13/2021 is reported to show no active disease CT of the chest without contrast from the 02/13/2021 is reported to show limited exam showing no evidence of acute intrathoracic disease. The upper abdomen shows ascites representing a change from the prior exam. CT of the abdomen pelvis performed without IV contrast on 02/13/2021 was reported to show there is free intraperitoneal air consistent with bowel perforation. The exact lead point cannot be identified. This finding was discussed with charly hwang, Deshawn Ray, the patient's immediate healthcare provider. There is what appears to be multiloculated ascites with nodular appearing mesentery. This could secondary carcinomatosis. The certainly concomitant inflammatory/infectious etiology cannot be ruled out MICROBIOLOGY: Please see below. PROGNOSIS: DISCHARGE PLAN: DISPOSITION: DISCHARGE INSTRUCTIONS: 1. None. DISCHARGE CONDITION: . TIME SPENT ON DISCHARGE: 20 minutes. Vital Signs/I&Os Vital Signs Date Time Temp Pulse Resp B/P (MAP) Pulse Ox O2 Delivery O2 Flow Rate FiO2 02/13/21 15:27 153 96 Room Air 02/13/21 15:15 126/66 (86) 02/13/21 13:20 97.6 32 Microbiology Microbiology 02/13/21 Respiratory Virus Panel (PCR) ([facility]) - Final, Complete 02/13/21 Blood Culture - Preliminary, Resulted No growth after 24 hours . All specim... 02/13/21 Blood Culture - Preliminary, Resulted No growth after 24 hours . All specim... Discharge Medications Scheduled Calcium Carbonate (Calcium) 600 Mg Tablet, 600 MG PO DAILY, (Reported) Cyanocobalamin (Vitamin B-12) (Vitamin B-12) 1,000 Mcg Tab, 2,000 MCG PO DAILY, (Reported) Latanoprost/Pf (Latanoprost 0.005% Eye Drop) 7.5 Ml Drops, 1 DROP OU QHS, (Reported) Multivitamins (Thera M Plus Tablet) 1 Tab Tab, 1 TAB PO DAILY, (Reported) [place]-3 Fatty Acids/Fish Oil (Fish Oil 1,000 mg Capsule) 1 Each Capsule, 1,000 MG PO DAILY, (Reported) Omeprazole (Omeprazole) 40 Mg Capsule.dr, 40 MG PO DAILY, (Reported) Ramipril (Ramipril) 5 Mg Cap, 5 MG PO BID, (Reported) Simvastatin (Zocor) 80 Mg Tablet, 40 MG PO DAILY, (Reported) Tamsulosin HCl (Flomax) 0.4 Mg Cap, 0.4 MG PO QHS, (Reported) Timolol Maleate (Timolol Maleate) 0.5% 5ML Drops, 1 DROP OU BID, (Reported) Vits A,C,E/Zinc/Copper (Savision Tablet) 1 Each Tablet, 1 TAB PO DAILY, (Reported) Scheduled PRN Diclofenac Sodium (Diclofenac Sodium) 1% 100GM Gel..gram., 4 GM TOP QID PRN for PAIN LEVEL 1-4, (Reported) APPLIES TO BACK Docusate Sodium (Colace) 100 Mg Capsule, 100 MG PO DAILY PRN for CONSTIPATION, (Reported) Allergies Coded Allergies: No Known Allergies (Unverified , 06/29/19) KEEGAN STARK DO Feb 14, 2021 17:47
== END 2021-02-13 18:42 | disposition expired | DRG 951 ==
LOC: EDBD 11:42 → M ED 11:42 → M ED INP 18:10
PROVIDERS: ADMIT Family Medicine; ATTEND Family Medicine
DX: Z51.5 Encounter for palliative care (principal); A41.9 Sepsis, unspecified organism; K63.1 Perforation of intestine (nontraumatic); R18.8 Other ascites; E87.2 Acidosis; E87.1 Hypo-osmolality and hyponatremia; N17.9 Acute kidney failure, unspecified; C80.0 Disseminated malignant neoplasm, unspecified; I10 Essential (primary) hypertension; Z66 Do not resuscitate; E78.5 Hyperlipidemia, unspecified; R73.01 Impaired fasting glucose; M47.812 Spondylosis without myelopathy or radiculopathy, cervical region; K21.9 Gastro-esophageal reflux disease without esophagitis; E66.9 Obesity, unspecified; N40.0 Benign prostatic hyperplasia without lower urinary tract symptoms; E55.9 Vitamin D deficiency, unspecified; M19.041 Primary osteoarthritis, right hand; M19.042 Primary osteoarthritis, left hand; Z87.891 Personal history of nicotine dependence; Z79.899 Other long term (current) drug therapy